=== PATIENT | female | born 1955 | race African-American/Black ===

== ENCOUNTER 2018-04-01 15:01 | Emergency (ER) | payer BC, MEDICAID ==
--- OUTSIDE RECORDS SUMMARY | 2018-04-01 15:04 | XMS REPORT | Clinical Summary ---
:1955 Author Organization [facility] Address [address] [place] [address] Phone Care Team Providers Name Role Phone Unavailable Primary Care Provider Unavailable Allergies No Known Allergies Current Medications No known medications Active Problems Not on file Social History Tobacco Use Types Packs/Day Years Used Date Current Some Day Smoker Cigars Alcohol Use Drinks/Week oz/Week Comments Yes Sex Assigned at Date Recorded Not on file Last Filed Vital Signs Not on file Plan of Treatment Not on file Results Not on fileafter 03/31/2017
--- NOTE | 2018-04-01 16:18 | RAD REPORT ---
EXAM DESCRIPTION: RAD - Foot Right 3 View - 04/01/2018 4:11 pm CLINICAL HISTORY: Right foot pain FINDINGS: No fracture or dislocation is seen The bones are osteoporotic. Soft tissue swelling is present along the dorsal aspect of the midfoot. No underlying bony destructiv e lesion is seen
[2018-04-01] MEDS ORDERED: LIDOCAINE 1% 20 ML MDV ONE (16:26)
[2018-04-01] MEDS ORDERED: HYDROCODONE/APAP 5/325 MG TAB ONE (16:52)
--- NOTE | 2018-04-01 16:54 | ER ---
Nurse's Notes [facility] Name: Genevieve Pompa Age: 62 yrs Sex: Female : 1955 Arrival Date: 04/01/2018 Time: 15:07 Bed 12 Private MD: Diagnosis: Sebaceous cyst;Cellulitis of right lower limb Presentation: 04/01 15:14 Presenting complaint: Patient states: my R foot is hurting, i noticed a boil in there hj for weeks; its hot and painful; 10/10 pain; reports chills;. Transition of care: patient was not received from another setting of care. Onset of symptoms was April 01, 2018. Initial Sepsis Screen: Does the patient meet any 2 criteria? No. Patient's initial sepsis screen is negative. Does the patient have a suspected source of infection? No. Patient's initial sepsis screen is negative. Care prior to arrival: None. 15:14 Method Of Arrival: Ambulatory 15:14 Acuity: DA 4 hj Triage Assessment: 15:16 General: Appears in no apparent distress. uncomfortable, Behavior is calm, cooperative, hj appropriate for age. Pain: Complains of pain in dorsum of right foot Pain currently is 10 out of 10 on a pain scale. Historical: - Allergies: 15:16 No Known Allergies; hj - Home Meds: 15:16 None [Active]; hj - PMHx: 15:16 Hypertension; hj - PSHx: 15:16 None; hj - Immunization history:: Adult Immunizations up to date. - Social history:: The patient lives with family, Smoking status: Patient/guardian denies using tobacco. Screenin:54 Abuse screen: Denies threats or abuse. Nutritional screening: No deficits noted. la1 Tuberculosis screening: No symptoms or risk factors identified. Fall Risk None identified. Assessment: 15:53 General: Appears in no apparent distress. Behavior is calm, cooperative. Pain: la1 Complains of pain in dorsum of right foot. Neuro: Level of Consciousness is awake, alert, obeys commands, Oriented to person, place, time, situation. Cardiovascular: Capillary refill < 3 seconds Patient's skin is warm and dry. Musculoskeletal: Circulation, motion, and sensation intact. Capillary refill < 3 seconds, Range of motion: intact in all extremities, Elevated area of skin noted to dorsum of right foot without redness swelling or drainage. 16:21 Reassessment: Patient appears in no apparent distress at this time. No changes from la1 previously documented assessment. Patient and/or family updated on plan of care and expected duration. Pain level reassessed. Vital Signs: 15:16 BP 125 / 85; Pulse 94; Resp 18; Temp 98.8(TE); Pulse Ox 99% on R/A; Weight 67.13 kg; hj Height 5 ft. 5 in. (165.10 cm); Pain 10/10; 15:16 Body Mass Index 24.63 (67.13 kg, 165.10 cm) ED Course: 15:07 Patient arrived in ED. rg4 15:15 Triage completed. hj 15:16 Arm band placed on right wrist. hj 15:53 Clemente Santana RN is Primary Nurse. la1 15:54 Call light in reach. la1 15:56 Doug Gomez MD is Attending Physician. gs 16:11 Foot Right 3 View In Process Unspecified. EDMS 17:14 No provider procedures requiring assistance completed. Patient did not have IV access la1 during this emergency room visit. Administered Medications: 16:26 Drug: Lidocaine (1 %) 5 mg Route: Infiltration; la1 16:53 Drug: [place] 5 mg-325 mg 1 tabs Route: PO; iw Outcome: 16:54 Discharge ordered by . gs 17:14 Discharged to home ambulatory. la1 17:14 Condition: stable 17:14 Discharge instructions given to patient, family, Instructed on discharge instructions, follow up and referral plans. Demonstrated understanding of instructions, follow-up care, medications, Prescriptions given X 2. 17:15 Patient left the ED. la1 Signatures: Dispatcher [employer] EDMS Zeina Calixto RN RN Clemente Santana RN RN laGeorge Wynne RN RN hj Garcia, Rubi rg4 Doug Gomez MD MD Corrections: (The following items were deleted from the chart) 15:18 15:16 Pulse 94bpm; Resp 18bpm; Pulse Ox 99% RA; Temp 98.8F Temporal; 67.13 kg; Height 5 hj ft. 5 in.; BMI: 24.6; Pain 10/10; hj
--- NOTE | 2018-04-01 16:55 | EDPHYS ---
Physician Documentation [facility] Name: Genevieve Pompa Age: 62 yrs Sex: Female : 1955 Arrival Date: 04/01/2018 Time: 15:07 Bed 12 Private MD: ED Physician Doug Gomez HPI: 04/01 16:50 This 62 yrs old Black Female presents to ER via Ambulatory with complaints of Foot Pain.gs 16:50 The patient presents with an abscess of the dorsum of right foot, The patient presents gs with cellulitis of the right foot. Description: The affected area is small, confluent, erythematous, fluctuant. Onset: The symptoms/episode began/occurred 5 day(s) ago, and became worse and became persistent. Associated signs and symptoms: Pertinent negatives: fever. Modifying factors: the symptoms are alleviated by nothing, the symptoms are aggravated by walking. Severity of symptoms: At their worst the symptoms were moderate, in the emergency department the symptoms are unchanged. The patient has experienced a previous episode. The patient has not recently seen a physician. Historical: - Allergies: 15:16 No Known Allergies; - Home Meds: 15:16 None [Active]; hj - PMHx: 15:16 Hypertension; - PSHx: 15:16 None; hj - Immunization history:: Adult Immunizations up to date. - Social history:: The patient lives with family, Smoking status: Patient/guardian denies using tobacco. ROS: 16:50 All other systems are negative. gs Exam: 16:50 Constitutional: The patient appears alert, awake. gs 16:50 Musculoskeletal/extremity: Extremities: noted in the right foot: erythema, swelling, tenderness, Circulation is intact in all extremities. Sensation intact. 16:50 Skin: abscess, that is small, of the dorsum of right foot, with fluctuance, that is mild, cellulitis, that is mild, on the dorsum of right foot. Vital Signs: 15:16 BP 125 / 85; Pulse 94; Resp 18; Temp 98.8(TE); Pulse Ox 99% on R/A; Weight 67.13 kg; hj Height 5 ft. 5 in. (165.10 cm); Pain 10/10; 15:16 Body Mass Index 24.63 (67.13 kg, 165.10 cm) Procedures: 16:50 I \T\ D: Incision and drainage was performed for an abscess of the right Prepped with Betadine, Anesthetized with 5 ml's 1% Lidocaine. Incised with #15 blade. Drained small amount looks like sebaceous cyst Dressing: sterile 4x4 gauze, the patient tolerated the procedure well. MDM: 16:25 Patient medically screened. gs 16:50 Differential diagnosis: abscess, cellulitis. Differential diagnosis: sebaceous cyst. Data reviewed: vital signs. Response to treatment: the patient's symptoms have markedly improved after treatment, and as a result, I will discharge patient. 04/01 15:55 Order name: Foot Right 3 View; Complete Time: 16:49 EDMS Administered Medications: 16:26 Drug: Lidocaine (1 %) 5 mg Route: Infiltration; la1 16:53 Drug: [place] 5 mg-325 mg 1 tabs Route: PO; Disposition: 04/01/18 16:54 Discharged to Home. Impression: Sebaceous cyst, Cellulitis of right lower limb. - Condition is Stable. - Discharge Instructions: Cellulitis, Epidermal Cyst, Bolh-[place]-Uudg. - Prescriptions for Tylenol- Codeine #4 300-60 mg Oral Tablet - take 1 tablet by ORAL route every 6 hours As needed; 10 tablet. Keflex 500 mg Oral Capsule - take 1 capsule by ORAL route every 6 hours for 10 days; 40 capsule. - Family Work Release, Medication Reconciliation Form, Thank You Letter, Antibiotic Education, Prescription Opioid Use form. - Follow up: Private Physician; When: 2 - 3 days; Reason: Re-evaluation by your physician. Signatures: Dispatcher [employer] [facility] Zeina Calixto RN RN Clemente Santana RN RN [facility] George Ramirez RN RN Doug Gomez MD MD Corrections: (The following items were deleted from the chart) 15:55 15:19 Foot Left 3 View+RAD.RAD.BRZ ordered. [facility] 17:15 16:54 04/01/2018 16:54 Discharged to Home. Impression: Sebaceous cyst; Cellulitis of la1 right lower limb. Condition is Stable. Forms are Medication Reconciliation Form, Thank You Letter, Antibiotic Education, Prescription Opioid Use. Follow up: Private Physician; When: 2 - 3 days; Reason: Re-evaluation by your physician.
[2018-04-01 17:35] VITALS: BP 125/85; TEMP 98.8; O2SAT 99
== END 2018-04-01 17:15 | disposition home or self-care (01) ==
LOC: ER 15:01
PROC: 0J9Q0ZZ Drainage of Right Foot Subcutaneous Tissue and Fascia, Open Approach (ICD-10-PCS; principal; 2018-04-01)
DX: L03.115 Cellulitis of right lower limb (principal); L72.3 Sebaceous cyst; I10 Essential (primary) hypertension
CPT/HCPCS: 99283

== ENCOUNTER 2018-04-26 13:26 | Emergency (ER) | payer MEDICAID ==
--- OUTSIDE RECORDS SUMMARY | 2018-04-26 13:28 | XMS REPORT | Clinical Summary ---
:1955 Author Organization [facility] Address [address] [place] [address] Phone Care Team Providers Name Role Phone [...] Not on file Results Not on fileafter 04/25/2017
--- NOTE | 2018-04-26 15:49 | ER ---
Nurse's Notes [facility] Name: Genevieve Pompa Age: 62 yrs Sex: Female : 1955 Arrival Date: 04/26/2018 Time: 13:35 Bed 26 Private MD: None, None Diagnosis: Sebaceous cyst Presentation: 04/26 14:27 Presenting complaint: Patient states: Pain at night to top of right foot after I \T\ D in aj this ER 5 weeks ago. Patient reports itching as well. Transition of care: patient was not received from another setting of care. Onset of symptoms was April 04, 2018. Risk Assessment: Do you want to hurt yourself or someone else? Patient reports no desire to harm self or others. Care prior to arrival: None. 14:27 Method Of Arrival: Ambulatory 14:27 Acuity: DA 4 16:09 Initial Sepsis Screen: Does the patient meet any 2 criteria? No. Patient's initial tl3 sepsis screen is negative. Does the patient have a suspected source of infection? No. Patient's initial sepsis screen is negative. Triage Assessment: 14:29 General: Appears in no apparent distress. comfortable, Behavior is calm, cooperative, aj appropriate for age. Pain: Complains of pain in dorsum of right foot. Neuro: Level of Consciousness is awake, alert, obeys commands, Oriented to person, place, time, situation, Appropriate for age. Respiratory: Airway is patent Respiratory effort is even, unlabored, Respiratory pattern is regular, symmetrical. Derm: Skin is intact, is healthy with good turgor, Skin is pink, warm \T\ dry. normal. Historical: - Allergies: 14:29 Tylenol-Codeine #3; aj - Home Meds: 14:29 None [Active]; aj - PMHx: 14:29 Hypertension; aj - PSHx: 14:29 None; aj - Immunization history:: Adult Immunizations up to date. - Social history:: Smoking status: Patient uses tobacco products, cigars. - Ebola Screening: : Patient negative for fever greater than or equal to 101.5 degrees Fahrenheit, and additional compatible Ebola Virus Disease symptoms Patient denies exposure to infectious person Patient denies travel to an Ebola-affected area in the 21 days before illness onset No symptoms or risks identified at this time. Screenin:38 Abuse screen: Denies threats or abuse. Nutritional screening: No deficits noted. tl3 Tuberculosis screening: No symptoms or risk factors identified. Fall Risk None identified. Assessment: 15:38 General: Appears in no apparent distress. comfortable, well groomed, well developed, tl3 well nourished, Behavior is calm, cooperative, appropriate for age. Pain: Complains of pain in right foot and dorsum of right foot. Neuro: No deficits noted. Level of Consciousness is awake, alert, obeys commands, Oriented to person, place, time, situation, Appropriate for age. Cardiovascular: No deficits noted. Patient's skin is warm and dry. Respiratory: No deficits noted. Airway is patent Respiratory effort is even, unlabored, Respiratory pattern is regular, symmetrical. GI: No deficits noted. No signs and/or symptoms were reported involving the gastrointestinal system. : No deficits noted. No signs and/or symptoms were reported regarding the genitourinary system. EENT: No deficits noted. No signs and/or symptoms were reported regarding the EENT system. Derm: No deficits noted. No signs and/or symptoms reported regarding the dermatologic system. Musculoskeletal: Swelling present in right foot and dorsum of right foot treated for abscess 5 weeks ago, pt complains of tenderness and swelling, no drainage or heat at present time. Vital Signs: 14:29 BP 136 / 77; Pulse 88; Resp 16; Temp 97.8; Pulse Ox 97% on R/A; Weight 66.22 kg; Height aj 5 ft. 5 in. (165.10 cm); 14:29 Body Mass Index 24.30 (66.22 kg, 165.10 cm) ED Course: 13:35 Patient arrived in ED. sb2 13:35 None, None is Private Physician. sb2 14:28 Triage completed. aj 14:29 Arm band placed on left wrist. Patient placed in an exam room. aj 15:33 Su Corona, GUS is Primary Nurse. tl3 15:36 Doug Gomez MD is Attending Physician. gs 15:38 Patient has correct armband on for positive identification. Bed in low position. Call tl3 light in reach. Side rails up X 1. Pulse ox on. NIBP on. 15:38 No provider procedures requiring assistance completed. tl3 15:48 Casey Chin DPM is Referral Physician. gs 15:48 Bill Martin DPM is Referral Physician. gs 15:48 Keegan Bee DPM is Referral Physician. gs 15:48 Carlos Mccain DPM is Referral Physician. gs 16:09 Patient did not have IV access during this emergency room visit. tl3 Administered Medications: No medications were administered Outcome: 15:48 Discharge ordered by MD. 16:08 Discharged to home ambulatory. tl3 16:08 Condition: stable 16:08 Discharge instructions given to patient, Instructed on discharge instructions, follow up and referral plans. Demonstrated understanding of instructions, follow-up care. 16:09 Patient left the ED. tl3 Signatures: Vivian Shin, RN RN Doug Jo MD MD Sheila Torres 2 Su Corona, RN RN tl3
--- NOTE | 2018-04-26 16:10 | EDPHYS ---
Physician Documentation [facility] Name: Genevieve Pompa Age: 62 yrs Sex: Female : 1955 Arrival Date: 04/26/2018 Time: 13:35 Bed 26 Private MD: None, None ED Physician Doug Gomez HPI: 04/26 15:53 This 62 yrs old Black Female presents to ER via Ambulatory with complaints of Foot gs Pain, Leg Pain. 15:53 The patient presents with sebaceous cyst on foot. The complaints affect the right foot, gs dorsum of right foot. Onset: The symptoms/episode began/occurred 3 month(s) ago. Modifying factors: the symptoms are aggravated by wearing shoes. Associated signs and symptoms: Pertinent negatives: fever. Severity of symptoms: At their worst the symptoms were moderate, in the emergency department the symptoms are unchanged. The patient has experienced similar episodes in the past, a few times. The patient has been recently seen at the [facility] Emergency Department, last month, had drained by me, did not follow up. Historical: - Allergies: 14:29 Tylenol-Codeine #3; aj - Home Meds: 14:29 None [Active]; aj - PMHx: 14:29 Hypertension; aj - PSHx: 14:29 None; aj - Immunization history:: Adult Immunizations up to date. - Social history:: Smoking status: Patient uses tobacco products, cigars. - Ebola Screening: : Patient negative for fever greater than or equal to 101.5 degrees Fahrenheit, and additional compatible Ebola Virus Disease symptoms Patient denies exposure to infectious person Patient denies travel to an Ebola-affected area in the 21 days before illness onset No symptoms or risks identified at this time. ROS: 15:53 All other systems are negative. gs Exam: 15:53 ENT: Nares patent. No nasal discharge, no septal abnormalities noted. Tympanic gs membranes are normal and external auditory canals are clear. Oropharynx with no redness, swelling, or masses, exudates, or evidence of obstruction, uvula midline. Mucous membranes moist. Cardiovascular: Regular rate and rhythm with a normal S1 and S2. No gallops, murmurs, or rubs. Normal PMI, no JVD. No pulse deficits. Respiratory: Lungs have equal breath sounds bilaterally, clear to auscultation and percussion. No rales, rhonchi or wheezes noted. No increased work of breathing, no retractions or nasal flaring. Abdomen/GI: Soft, non-tender, with normal bowel sounds. No distension or tympany. No guarding or rebound. No evidence of tenderness throughout. Back: No spinal tenderness. No costovertebral tenderness. Full range of motion. Skin: Warm, dry with normal turgor. Normal color with no rashes, no lesions, and no evidence of cellulitis. Neuro: Awake and alert, GCS 15, oriented to person, place, time, and situation. Cranial nerves II-XII grossly intact. Motor strength 5/5 in all extremities. Sensory grossly intact. Cerebellar exam normal. Normal gait. 15:53 Constitutional: The patient appears in no acute distress, alert, awake. 15:53 Musculoskeletal/extremity: ROM: no acute changes, Circulation is intact in all extremities. Sensation intact. 15:53 Skin: abscess, that is small, approximately 33 cm(s), of the dorsum of right foot, is a sebaceous cyst. Vital Signs: 14:29 BP 136 / 77; Pulse 88; Resp 16; Temp 97.8; Pulse Ox 97% on R/A; Weight 66.22 kg; Height aj 5 ft. 5 in. (165.10 cm); 14:29 Body Mass Index 24.30 (66.22 kg, 165.10 cm) aj MDM: 15:46 Patient medically screened. 15:53 Data reviewed: vital signs, nurses notes. Response to treatment: There is no gs appreciated change of the patient's symptoms at this time, and as a result, I will discharge patient. Administered Medications: No medications were administered Disposition: 04/26/18 15:48 Discharged to Home. Impression: Sebaceous cyst. - Condition is Stable. - Discharge Instructions: Epidermal Cyst. - Medication Reconciliation Form, Thank You Letter, Antibiotic Education, Prescription Opioid Use, Family Work Release form. - Follow up: Casey Chin DPM; When: 2 - 3 days. Follow up: Bill Martin DPM; When: 2 - 3 days; Reason: Re-evaluation by your physician. Follow up: Keegan Bee DPM; When: 2 - 3 days; Reason: Re-evaluation by your physician. Follow up: Carlos Mccain DPM; Reason: Re-evaluation by your physician. Signatures: Vivian Shin RN RN Doug Gomez MD MD Su Corona RN RN tl3 Corrections: (The following items were deleted from the chart) 16:09 15:48 04/26/2018 15:48 Discharged to Home. Impression: Sebaceous cyst. Condition is tl3 Stable. Forms are Medication Reconciliation Form, Thank You Letter, Antibiotic Education, Prescription Opioid Use. Follow up: Casey Chin; When: 2 - 3 days. Follow up: Bill Martin; When: 2 - 3 days; Reason: Re-evaluation by your physician. Follow up: Keegan Bee; When: 2 - 3 days; Reason: Re-evaluation by your physician. Follow up: Carlos Mccain; Reason: Re-evaluation by your physician. gs
[2018-04-26 16:13] VITALS: BP 136/77; TEMP 97.8; O2SAT 97
== END 2018-04-26 16:09 | disposition home or self-care (01) ==
LOC: ER 13:26
DX: L72.3 Sebaceous cyst (principal); I10 Essential (primary) hypertension; Z72.0 Tobacco use; Z88.5 Allergy status to narcotic agent
CPT/HCPCS: 99283

== ENCOUNTER 2018-10-27 18:07 | Emergency (ER) | payer MEDICAID ==
--- OUTSIDE RECORDS SUMMARY | 2018-10-27 18:10 | XMS REPORT | Clinical Summary ---
:1955 Author Organization [facility] Address [address] [place] [id number] Care Team Providers Name Role Phone Kacey Primary Care Provider Allergies No Known Allergies Medications No known medications Active Problems Not on file Social History Tobacco Use Types Packs/Day Years Used Date Current Some Day Smoker Cigars Alcohol Use Drinks/Week oz/Week Comments Yes Sex Assigned at Date Recorded Not on file Job Start Date Occupation Industry Not on file Not on file Not on file Travel History Travel Start Travel End No recent travel history available. Last Filed Vital Signs Not on file Plan of Treatment Not on file Results Not on fileafter 10/26/2017
--- NOTE | 2018-10-27 21:17 | RAD REPORT ---
EXAM DESCRIPTION: US - Extrem Venous W Compress Rasheed - 10/27/2018 9:12 pm CLINICAL HISTORY: Bilateral leg pain and swelling COMPARISON: None. TECHNIQUE: Real-time sonographic evaluation of the bilateral lower extremity common femoral, superfi cial femoral, popliteal and posterior tibial veins was performed. FINDINGS: Normal compressibility, flow augmentation, phasic flow and spontaneous flow are identified in the left and right lower extremity common femoral, superficial femoral, popliteal and posterior t ibial veins. No intraluminal filling defects seen. IMPRESSION: No DVT in either lower extremity.
[2018-10-27 22:08] LABS: Absolute Lymphocytes (CBC) 2.7 K/uL (0.7-4.9); Absolute Monocytes 0.8 K/uL (0.1-1.3); Absolute Neutrophil 9.4 K/uL (1.8-8.0); Basophils % 0.7 % (0-1.3); Eosinophils % 1.2 % (0-4.4); Hematocrit 34.5 % (36.0-45.0); Lymphocytes % 20.8 % (15.3-44.8); MCH 27.7 pg (27.0-35.0); MCV 86.9 fL (80-100); MPV 9.7 fL (7.6-11.3); Monocytes % 6.1 % (3.3-12.3); RBC Red Blood Cell Count 3.97 M/uL (3.86-4.86)
[2018-10-27] MEDS ORDERED: HYDROCODONE/APAP 10/325 TAB ONE (22:09)
[2018-10-27 22:10] LABS: Albumin 3.6 g/dL (3.4-5.0); Bilirubin Total 0.3 mg/dL (0.2-1.0); Potassium 4.7 mmol/L (3.5-5.1); Protein, Total 7.5 g/dL (6.4-8.2)
[2018-10-27 22:45] LABS: Platelet Estimate ADEQ; Urine White Blood Cell Casts OK
[2018-10-27 22:46] LABS: Blood Morphology Comment NOT SEEN (NOT SEEN)
[2018-10-27] MEDS ORDERED: ONDANSETRON 4 MG/2 ML VIAL ONE (23:46)
[2018-10-27] MEDS ORDERED: FENTANYL CITR 100 MCG/2 ML ONE (23:46)
[2018-10-27] MEDS ORDERED: CLINDAMYCIN 900MG/D5W 900 MG/50 ML IVPB IV ONE (23:46)
--- NOTE | 2018-10-28 00:16 | EDPHYS ---
Physician Documentation [facility] Name: Genevieve Pompa Age: 62 yrs Sex: Female : 1955 Arrival Date: 10/27/2018 Time: 18:12 Bed 15 Private MD: ED Physician German Worthington HPI: 10/27 20:09 This 62 yrs old Black Female presents to ER via Wheelchair with complaints of Feet jmm Swelling. 20:09 The patient presents with pain, that is acute, swelling. The complaints affect the jmm posterior aspect of right knee, right calf, medial aspect of right knee, medial aspect of right calf, right knee, right estrdaa and dorsum of right foot. Onset: The symptoms/episode began/occurred gradually, 2 day(s) ago. Associated signs and symptoms: Pertinent positives: calf tenderness, fever, warmth. This is a 62 year old female with a history of htn that presents to the ED with right lower leg pain and swelling beginning approx 2 days ago. Patient admits to chills and subjective fever. . Historical: - Allergies: 18:37 Tylenol-Codeine #3; la1 - PMHx: 18:37 Hypertension; la1 - Immunization history:: Adult Immunizations up to date. - Social history:: Smoking status: Patient/guardian denies using tobacco. - Ebola Screening: : No symptoms or risks identified at this time. ROS: 20:09 Eyes: Negative for injury, pain, redness, and discharge. jmm 20:09 Constitutional: Positive for chills, fever. 20:09 MS/extremity: Positive for erythema, pain, swelling, tenderness. 20:09 All other systems are negative. Exam: 20:09 Constitutional: This is a well developed, well nourished patient who is awake, alert, jmm and in no acute distress. Head/Face: atraumatic. Eyes: EOMI, no conjunctival erythema appreciated ENT: Moist Mucus Membranes Neck: Trachea midline, Supple Chest/axilla: Normal chest wall appearance and motion. Cardiovascular: Regular rate and rhythm. No edema appreciated Respiratory: Normal respirations, no respiratory distress appreciated 20:09 Musculoskeletal/extremity: full dorsalis pedis pulse noted to the right foot, compartments are soft, NVI. 20:09 Skin: warmth and tenderness noted to the right lower leg. 20:09 Neuro: Orientation: is normal, Mentation: is normal, Memory: is normal, Motor: is normal. 20:09 Psych: Behavior/mood is pleasant, cooperative. Vital Signs: 18:37 BP 135 / 81; Pulse 71; Resp 15; Temp 98.7; Pulse Ox 98% on R/A; Weight 72.57 kg; Height la1 5 ft. 5 in. (165.10 cm); 20:05 BP 150 / 91; Pulse 77; Resp 18; Temp 99.0(O); Pulse Ox 99% on R/A; Pain 8/10; jb4 21:00 BP 127 / 76; Pulse 84; Resp 16; Pulse Ox 100% on R/A; jb4 22:00 BP 133 / 83; Pulse 81; Resp 16; Pulse Ox 100% on R/A; jb4 23:00 BP 127 / 87; Pulse 88; Resp 18; Pulse Ox 95% on R/A; jb4 10/28 00:00 BP 130 / 77; Pulse 88; Resp 16; Pulse Ox 97% ; jb4 00:30 BP 123 / 76; Pulse 88; Resp 16; Pulse Ox 98% on R/A; jb4 10/27 18:37 Body Mass Index 26.63 (72.57 kg, 165.10 cm) la1 MDM: 10/27 20:[address] [facility] 10/28 00:13 Data reviewed: vital signs, nurses notes. Counseling: I had a detailed discussion with mendoza the patient and/or guardian regarding: the historical points, exam findings, and any diagnostic results supporting the discharge/admit diagnosis, lab results, radiology results, the need for outpatient follow up, to return to the emergency department if symptoms worsen or persist or if there are any questions or concerns that arise at home. Response to treatment: the patient's symptoms have mildly improved after treatment. ED course: Patient is alert and non toxic in appearance in the ED. Patient will be treated with oral antibiotics outpatient. Patient given strict return precautions. Patient understood and agrees with the plan of care. . 10/27 20:10 Order name: CBC with Diff [facility] 10/27 20:10 Order name: CMP [facility] 10/27 20:10 Order name: Procalcitonin [facility] 10/27 20:10 Order name: Blood Culture Adult (2) [facility] 10/27 20:10 Order name: Lactate [facility] 10/27 21:18 Order name: Procalcitonin; Complete Time: 21:57 EDMS 10/27 19:18 Order name: Extrem Venous W Compression Rasheed US rn 10/27 21:18 Order name: US; Complete Time: 21:57 EDMS 10/27 22:10 Order name: Comprehensive Metabolic Panel; Complete Time: 22:11 EDMS 10/27 22:27 Order name: Lactate; Complete Time: 22:37 EDMS 10/27 22:46 Order name: CBC with Automated Diff; Complete Time: 23:00 EDMS 10/27 22:46 Order name: CBC Smear Scan; Complete Time: 23:00 EDMS 10/27 20:10 Order name: Saline Lock; Complete Time: 22:06 [facility] Administered Medications: 10/27 22:06 Drug: [place] 10 mg-325 mg 1 tabs Route: PO; [facility] 23:22 Follow up: Response: No adverse reaction; Pain is decreased [facility] 23:48 Drug: Zofran 4 mg Route: IVP; Site: left antecubital; [facility] 10/28 01:00 Follow up: Response: No adverse reaction; Nausea is decreased [facility] 10/27 23:49 Drug: fentaNYL (PF) 50 mcg Route: IVP; Site: left antecubital; 4 10/28 01:00 Follow up: Response: No adverse reaction; Pain is decreased [facility] 10/27 23:50 Drug: Clindamycin 900 mg Route: IVPB; Infused Over: 30 mins; Site: left antecubital; [facility] 10/28 00:20 Follow up: Response: No adverse reaction; IV Status: Completed infusion [facility] Disposition: 05:01 Co-signature as Attending Physician, German Worthington MD. rn Disposition: 10/28/18 00:15 Discharged to Home. Impression: Cellulitis of the right lower leg. - Condition is Stable. - Discharge Instructions: Cellulitis, Adult. - Prescriptions for Clindamycin HCl 300 mg Oral Capsule - take 1 capsule by ORAL route every 6 hours for 10 days; 40 capsule. Ultram 50 mg Oral Tablet - take 1 tablet by ORAL route every 6 hours As needed; 20 tablet. Bactrim DS 800- 160 mg Oral Tablet - take 1 tablet by ORAL route every 12 hours for 10 days; 20 tablet. - Medication Reconciliation Form, Thank You Letter, Antibiotic Education, Prescription Opioid Use form. - Follow up: Private Physician; When: 2 - 3 days; Reason: Recheck today's complaints, Continuance of care, Re-evaluation by your physician. Signatures: Dispatcher [employer] EDAdam Chowdary PA PA jmm Nieto, Roman, MD MD rn Attema, Lee, RN RN la1 Rasta May RN RN jb4 Corrections: (The following items were deleted from the chart) 01:30 00:15 10/28/2018 00:15 Discharged to Home. Impression: Cellulitis of the right lower jb4 leg. Condition is Stable. Forms are Medication Reconciliation Form, Thank You Letter, Antibiotic Education, Prescription Opioid Use. Follow up: Private Physician; When: 2 - 3 days; Reason: Recheck today's complaints, Continuance of care, Re-evaluation by your physician. carlene
--- NOTE | 2018-10-28 00:16 | ER ---
Nurse's Notes [facility] Name: Genevieve Pompa Age: 62 yrs Sex: Female : 1955 Arrival Date: 10/27/2018 Time: 18:12 Bed 15 Private MD: Diagnosis: Cellulitis of the right lower leg Presentation: 10/27 18:36 Presenting complaint: Patient states: About three weeks ago my leg was swollen and now la1 my right lower leg is swollen and hurting. Transition of care: patient was not received from another setting of care. Onset of symptoms was October 27, 2018. Risk Assessment: Do you want to hurt yourself or someone else? Patient reports no desire to harm self or others. Initial Sepsis Screen: Does the patient meet any 2 criteria? No. Patient's initial sepsis screen is negative. Does the patient have a suspected source of infection? No. Patient's initial sepsis screen is negative. Care prior to arrival: None. 18:36 Method Of Arrival: Wheelchair la1 18:36 Acuity: DA 3 la1 Historical: - Allergies: 18:37 Tylenol-Codeine #3; la1 - PMHx: 18:37 Hypertension; la1 - Immunization history:: Adult Immunizations up to date. - Social history:: Smoking status: Patient/guardian denies using tobacco. - Ebola Screening: : No symptoms or risks identified at this time. Screenin:05 Abuse screen: Denies threats or abuse. Nutritional screening: No deficits noted. jb4 Tuberculosis screening: No symptoms or risk factors identified. Fall Risk Gait- Impaired (20 pts.). Total Fletcher Fall Scale indicates No Risk (0-24 pts). Assessment: 20:05 General: Appears in no apparent distress. uncomfortable, Behavior is calm, cooperative, jb4 appropriate for age. Pain: Complains of pain in right foot and right leg Pain does not radiate. Pain currently is 5 out of 10 on a pain scale. Neuro: Level of Consciousness is awake, alert, obeys commands, Oriented to person, place, time. Cardiovascular: Patient's skin is warm and dry. Respiratory: Airway is patent Respiratory effort is even, unlabored, Respiratory pattern is regular, symmetrical. GI: No signs and/or symptoms were reported involving the gastrointestinal system. : EENT: No signs and/or symptoms were reported regarding the EENT system. Derm: Skin is intact, Skin is dry, Skin is normal, Skin temperature is warm. Musculoskeletal: Capillary refill < 3 seconds, in bilateral toes. Range of motion: limited in right ankle. 21:00 Reassessment: Patient appears in no apparent distress at this time. Patient and/or jb4 family updated on plan of care and expected duration. Pain level reassessed. Patient is alert, oriented x 3, equal unlabored respirations, skin warm/dry/pink. 21:00 Reassessment: Patient appears in no apparent distress at this time. Patient and/or jb4 family updated on plan of care and expected duration. Pain level reassessed. Patient is alert, oriented x 3, equal unlabored respirations, skin warm/dry/pink. 22:00 Reassessment: Patient appears in no apparent distress at this time. Patient and/or jb4 family updated on plan of care and expected duration. Pain level reassessed. Patient is alert, oriented x 3, equal unlabored respirations, skin warm/dry/pink. 23:00 Reassessment: Patient appears in no apparent distress at this time. Patient and/or jb4 family updated on plan of care and expected duration. Pain level reassessed. Patient is alert, oriented x 3, equal unlabored respirations, skin warm/dry/pink. Patient states feeling better. 10/28 00:00 Reassessment: Patient appears in no apparent distress at this time. Patient and/or jb4 family updated on plan of care and expected duration. Pain level reassessed. Patient is alert, oriented x 3, equal unlabored respirations, skin warm/dry/pink. 00:30 Reassessment: Pt is waiting for her ride prior to discharge. jb4 01:00 Reassessment: Patient appears in no apparent distress at this time. Patient and/or jb4 family updated on plan of care and expected duration. Pain level reassessed. Patient is alert, oriented x 3, equal unlabored respirations, skin warm/dry/pink. Vital Signs: 10/27 18:37 BP 135 / 81; Pulse 71; Resp 15; Temp 98.7; Pulse Ox 98% on R/A; Weight 72.57 kg; Height la1 5 ft. 5 in. (165.10 cm); 20:05 BP 150 / 91; Pulse 77; Resp 18; Temp 99.0(O); Pulse Ox 99% on R/A; Pain 8/10; jb4 21:00 BP 127 / 76; Pulse 84; Resp 16; Pulse Ox 100% on R/A; jb4 22:00 BP 133 / 83; Pulse 81; Resp 16; Pulse Ox 100% on R/A; jb4 23:00 BP 127 / 87; Pulse 88; Resp 18; Pulse Ox 95% on R/A; jb4 12 00:00 BP 130 / 77; Pulse 88; Resp 16; Pulse Ox 97% ; jb4 00:30 BP 123 / 76; Pulse 88; Resp 16; Pulse Ox 98% on R/A; jb4 10/27 18:37 Body Mass Index 26.63 (72.57 kg, 165.10 cm) la1 ED Course: 10/27 18:12 Patient arrived in ED. sb2 18:37 Triage completed. la1 18:38 Arm band placed on right wrist. la1 19:40 Adam Cunningham PA is PHCP. [facility] 19:40 German Worthington MD is Attending Physician. [facility] 19:59 Rasta May, GUS is Primary Nurse. jb4 20:05 Patient has correct armband on for positive identification. Bed in low position. Call jb4 light in reach. Side rails up X 1. Pulse ox on. NIBP on. 21:09 Radiology exam delayed due to IV insertion attempt and/or patient not having sg3 appropriate IV at this time. 21:09 Ultrasound completed. Patient tolerated well. Notified WAREHOUSE SELECTOR/JENNIFER nj. sg3 21:55 Inserted saline lock: 22 gauge in left antecubital area, using aseptic technique. Blood la1 collected. 22:06 CMP Sent. jb4 22:06 CBC with Diff Sent. jb4 22:07 Blood Culture Adult (2) Sent. jb4 22:07 Lactate Sent. jb4 22:07 Procalcitonin Sent. jb4 10/28 01:00 No provider procedures requiring assistance completed. jb4 01:15 IV discontinued, intact, bleeding controlled. jb4 Administered Medications: 10/27 22:06 Drug: [place] 10 mg-325 mg 1 tabs Route: PO; jb4 23:22 Follow up: Response: No adverse reaction; Pain is decreased jb4 23:48 Drug: Zofran 4 mg Route: IVP; Site: left antecubital; jb4 10/28 01:00 Follow up: Response: No adverse reaction; Nausea is decreased jb4 10/27 23:49 Drug: fentaNYL (PF) 50 mcg Route: IVP; Site: left antecubital; jb4 10/28 01:00 Follow up: Response: No adverse reaction; Pain is decreased jb4 10/27 23:50 Drug: Clindamycin 900 mg Route: IVPB; Infused Over: 30 mins; Site: left antecubital; jb4 10/28 00:20 Follow up: Response: No adverse reaction; IV Status: Completed infusion jb4 Outcome: 00:15 Discharge ordered by . carlene 01:15 Discharged to home ambulatory. [facility] 01:15 Condition: stable 01:15 Discharge instructions given to patient, Instructed on discharge instructions, follow up and referral plans. medication usage, Demonstrated understanding of instructions, follow-up care, medications, Prescriptions given X 3. 01:30 Patient left the ED. jb4 Signatures: Adam Cunningham PA PA jmm Attema, Lee RN RN la1 Rasta May RN RN jb4 Luh Alexandra3 Sheila Torres2
[2018-10-28 02:03] VITALS: TEMP 99
[2018-10-28 02:10] VITALS: BP 123/76; O2SAT 98
== END 2018-10-28 01:30 | disposition home or self-care (01) ==
LOC: ER 18:07
DX: L03.115 Cellulitis of right lower limb (principal); I10 Essential (primary) hypertension; Z88.5 Allergy status to narcotic agent
CPT/HCPCS: 36415; 80053; 83605; 84145; 85025; 87040; 93970; 96365; 96375; 99284; J2405; J3010

== ENCOUNTER 2019-05-20 17:54 | Emergency (ER) | payer MEDICAID ==
--- OUTSIDE RECORDS SUMMARY | 2019-05-20 17:56 | XMS REPORT | Clinical Summary ---
:1955 Author Organization [facility] Address [address] [place] [id number] Care Team Providers Name Role Phone Kacey [...] Not on file Results Not on fileafter 05/19/2018
--- NOTE | 2019-05-20 18:48 | RAD REPORT ---
EXAM DESCRIPTION: CT - Head Brain Wo Cont - 05/20/2019 6:41 pm CLINICAL HISTORY: HEADACHE Headache, drowsiness COMPARISON: <Comparisons> TECHNIQUE: All CT scans are performed using dose optimization technique as appropriate and may inclu de automated exposure control or mA/KV adjustment according to patient size. FINDINGS: No intracranial hemorrhage, hydrocephalus or extra-axial fluid collection.No areas of brai n edema or evidence of midline shift. The paranasal sinuses and mastoids are clear. The calvarium is intact. IMPRESSION: No acute intracranial abnormality.
[2019-05-20 18:49] LABS: Basophils % 1.1 % (0-1.3); Eosinophils % 0.6 % (0-4.4); Lymphocytes % 29.8 % (15.3-44.8); MPV 8.7 fL (7.6-11.3); Monocytes % 5.5 % (3.3-12.3)
[2019-05-20 19:13] LABS: Bilirubin Direct 0.1 mg/dL (0-0.2); Bilirubin Total 0.3 mg/dL (0.2-1.0); Potassium 4.9 mmol/L (3.5-5.1); Protein, Total 8.2 g/dL (6.4-8.2)
[2019-05-20] MEDS ORDERED: DIPHENHYDRAMINE 50 MG/ML VIAL ONE (19:19)
[2019-05-20] MEDS ORDERED: KETOROLAC 30 MG/ML INJ ONE (19:19)
[2019-05-20] MEDS ORDERED: METOCLOPRAMIDE 10 MG/2mL INJ ONE (19:19)
[2019-05-20] MEDS ORDERED: NA CHLORIDE 0.9% 1,000 ML ONE (19:20)
[2019-05-20] MEDS ORDERED: CEFTRIAXONE/SWI 1gm 1 GM/10 ML SYR ONE (19:20)
[2019-05-20 19:37] LABS: Urine Blood TRACE (NEG); Urine Glucose NEGATIVE (NEG); Urine Protein 1+ (NEG); Urine Specific Gravity 1.015 (1.005-1.030)
[2019-05-20 19:39] LABS: Platelet Estimate ADEQ; Urine White Blood Cell Casts OK
[2019-05-20 19:40] LABS: Blood Morphology Comment NOT SEEN (NOT SEEN)
[2019-05-20] MEDS ORDERED: D50W 25 GM/50 ML SYRINGE IV ONE (20:11)
--- NOTE | 2019-05-20 20:16 | ER ---
Nurse's Notes [facility] Name: Genevieve Pompa Age: 63 yrs Sex: Female : 1955 Arrival Date: 05/20/2019 Time: 18:00 Bed 14 Private MD: Diagnosis: Cystitis, unspecified without hematuria;Acute kidney failure;Acidosis Presentation: 05/20 18:02 Presenting complaint: Patient states: Headache for the past 3 days, states that she has aj1 been taking ibuprofen at home with no relief. Denies hitting head. Transition of care: patient was not received from another setting of care. Onset of symptoms was May 17, 2019. Risk Assessment: Do you want to hurt yourself or someone else? Patient reports no desire to harm self or others. Initial Sepsis Screen: Does the patient meet any 2 criteria? No. Patient's initial sepsis screen is negative. Does the patient have a suspected source of infection? No. Patient's initial sepsis screen is negative. Care prior to arrival: None. 18:02 Method Of Arrival: Ambulatory [facility] 18:02 Acuity: DA 3 aj1 Triage Assessment: 18:03 Headache History: The patient has had previous headaches and this one is similar to aj1 previous episodes. General: Appears in no apparent distress. uncomfortable, Behavior is calm, cooperative, appropriate for age. Pain: Complains of pain in right caodaism and left caodaism Pain does not radiate. Pain currently is 9 out of 10 on a pain scale. Pain began 2-3 days ago. Also complains of no other associated symptoms. Neuro: Level of Consciousness is awake, alert, obeys commands. Cardiovascular: Patient's skin is warm and dry. Respiratory: Airway is patent Respiratory effort is even, unlabored, Respiratory pattern is regular, symmetrical. Historical: - Allergies: 18:03 Tylenol-Codeine #3; aj1 - Home Meds: 18:03 None [Active]; aj1 - PMHx: 18:03 Hypertension; aj1 - Immunization history:: Flu vaccine is not up to date. - Social history:: Smoking status: Patient uses tobacco products, denies chronic smoking, but will smoke occasionally, Patient/guardian denies using alcohol, street drugs, The patient lives with family. - Ebola Screening: : Patient denies travel to an Ebola-affected area in the 21 days before illness onset. - Family history:: not pertinent. - Hospitalizations: : No recent hospitalization is reported. Screenin:08 Abuse screen: Denies threats or abuse. Nutritional screening: No deficits noted. rb1 Tuberculosis screening: No symptoms or risk factors identified. Fall Risk None identified. Assessment: 18:08 General: Appears in no apparent distress. comfortable, Behavior is calm, cooperative. rb1 Pain: Complains of pain in left caodaism and right caodaism Pain currently is 10 out of 10 on a pain scale. Pain began x 3 days. Neuro: Level of Consciousness is awake, alert, obeys commands, Oriented to person, place, time, situation. Cardiovascular: Capillary refill < 3 seconds is brisk in bilateral fingers. Respiratory: Airway is patent Respiratory effort is even, unlabored, Respiratory pattern is regular, symmetrical. GI: Reports nausea, vomiting. : No signs and/or symptoms were reported regarding the genitourinary system. Derm: Skin is dry, Skin is normal, Skin temperature is warm. Musculoskeletal: Range of motion: intact in all extremities. 18:38 Reassessment: Pt. went to CT. rb1 19:00 Reassessment: Patient appears in no apparent distress at this time. Patient and/or jb4 family updated on plan of care and expected duration. Pain level reassessed. Patient is alert, oriented x 3, equal unlabored respirations, skin warm/dry/pink. 20:00 Reassessment: Patient appears in no apparent distress at this time. Patient and/or jb4 family updated on plan of care and expected duration. Pain level reassessed. Patient is alert, oriented x 3, equal unlabored respirations, skin warm/dry/pink. Provider at the bedside informing patient on plan of care. 21:11 Reassessment: Patient appears in no apparent distress at this time. Patient and/or jb4 family updated on plan of care and expected duration. Pain level reassessed. Patient is alert, oriented x 3, equal unlabored respirations, skin warm/dry/pink. PT left ED ambulatory with steady gate, verbalized understanding of d/c and follow up instructions. Verbalized leaving with all of patient belongings. Vital Signs: 18:03 BP 133 / 72; Pulse 85; Resp 18; Temp 98.3; Pulse Ox 100% on R/A; Weight 74.84 kg (R); aj1 Height 5 ft. 5 in. (165.10 cm) (R); 19:00 BP 117 / 71; Pulse 74; Resp 18; Pulse Ox 100% on R/A; jb4 20:00 BP 124 / 65; Pulse 81; Resp 16; Pulse Ox 100% on R/A; jb4 21:11 BP 136 / 83; Pulse 84; Resp 16; Pulse Ox 100% on R/A; jb4 18:03 Body Mass Index 27.46 (74.84 kg, 165.10 cm) aj1 ED Course: 18:00 Patient arrived in ED. mr 18:03 Triage completed. aj1 18:03 Arm band placed on Patient placed in an exam room. aj1 18:08 Dasia Meyer MD is Attending Physician. ma2 18:08 Patient has correct armband on for positive identification. Bed in low position. Call rb1 light in reach. Side rails up X 1. Pulse ox on. NIBP on. Warm blanket given. 18:09 Kassi Simon RN is Primary Nurse. rb1 18:[address] vm2 18:42 CT Head Brain wo Cont In Process Unspecified. EDMS 18:42 Inserted saline lock: 22 gauge in left wrist, using aseptic technique. Blood collected. 19:15 Report given to GUS Dixon. rb1 21:11 No provider procedures requiring assistance completed. IV discontinued, intact, jb4 bleeding controlled, No redness/swelling at site. Administered Medications: 19:10 Drug: NS 0.9% 1000 ml Route: IV; Rate: 1 bolus; Site: right hand; rb1 20:15 Follow up: Response: No adverse reaction; IV Status: Completed infusion; IV Intake: jb4 1000ml 19:10 Drug: Reglan 20 mg Route: IVP; Site: right hand; rb1 20:29 Follow up: Response: No adverse reaction jb4 19:10 Drug: Benadryl 50 mg Route: IVP; Site: right hand; rb1 20:29 Follow up: Response: No adverse reaction jb4 19:10 Drug: TORadol 60 mg Route: IVP; Site: right hand; rb1 20:28 Follow up: Response: No adverse reaction; Pain is decreased jb4 19:10 Drug: Rocephin 1 grams Route: IV; Rate: calculated rate; Site: right hand; rb1 19:12 Follow up: IV Status: Completed infusion; IV Intake: 10ml jb4 20:16 Follow up: Response: No adverse reaction jb4 20:02 Drug: D50W 50 ml Route: IVP; Site: right forearm; jb4 20:28 Follow up: Response: No adverse reaction; Blood sugar is elevated jb4 Point of Care Testing: Blood Glucose: 20:22 Blood Glucose: 165 mg/dL; jb4 Ranges: Intake: 19:12 IV: 10ml; Total: 10ml. jb4 20:15 IV: 1000ml; Total: 1010ml. jb4 Outcome: 20:14 Discharge ordered by . ma2 21:11 Discharged to home ambulatory. jb4 21:11 Condition: stable 21:11 Discharge instructions given to patient, Instructed on discharge instructions, follow up and referral plans. medication usage, Demonstrated understanding of instructions, follow-up care, medications, Prescriptions given X 2. 21:17 Patient left the ED. jb4 Signatures: Dispatcher [employer] EDMS Verito Cancino RN RN ch Johnson, Angela, RN RN aj1 Pam Nelsoner, Kassi, RN RN rb1 Rasta May RN RN jb4 Archana Marsh Mohammad, MD MD ma2 Corrections: (The following items were deleted from the chart) 20:14 20:13 Reassessment: Patient appears in no apparent distress at this time. Patient jb4 and/or family updated on plan of care and expected duration. Pain level reassessed. Patient is alert, oriented x 3, equal unlabored respirations, skin warm/dry/pink. jb4
--- NOTE | 2019-05-20 20:16 | EDPHYS ---
Physician Documentation [facility] Name: Genevieve Pompa Age: 63 yrs Sex: Female : 1955 Arrival Date: 05/20/2019 Time: 18:00 Bed 14 Private MD: ED Physician Dasia Meyer HPI: 05/20 20:08 This 63 yrs old Black Female presents to ER via Ambulatory with complaints of Headache. ma2 20:08 The patient complains of pain to the forehead. Onset: The symptoms/episode ma2 began/occurred gradually, 2 day(s) ago. Associated signs and symptoms: Pertinent negatives: altered mental status, fever, neck stiffness, paresthesias. Severity of symptoms: At its worst the pain was moderate, in the emergency department the pain is unchanged. Headache History: The patient has had previous headaches and this one is similar to previous episodes. The patient has experienced similar episodes in the past. Historical: - Allergies: 18:03 Tylenol-Codeine #3; aj1 - Home Meds: 18:03 None [Active]; aj1 - PMHx: 18:03 Hypertension; aj1 - Immunization history:: Flu vaccine is not up to date. - Social history:: Smoking status: Patient uses tobacco products, denies chronic smoking, but will smoke occasionally, Patient/guardian denies using alcohol, street drugs, The patient lives with family. - Ebola Screening: : Patient denies travel to an Ebola-affected area in the 21 days before illness onset. - Family history:: not pertinent. - Hospitalizations: : No recent hospitalization is reported. ROS: 20:08 Constitutional: Negative for fever, chills, and weight loss, Cardiovascular: Negative ma2 for chest pain, palpitations, and edema, Respiratory: Negative for shortness of breath, cough, wheezing, and pleuritic chest pain, Abdomen/GI: Negative for abdominal pain, nausea, diarrhea, and constipation, Back: Negative for injury and pain, MS/Extremity: Negative for injury and deformity, Psych: Negative for depression, anxiety, suicide ideation, homicidal ideation, and hallucinations, Allergy/Immunology: Negative for hives, rash, and allergies. 20:08 Neuro: Positive for headache, Negative for hearing loss, speech changes, syncope, acute changes. Exam: 20:08 Constitutional: This is a well developed, well nourished patient who is awake, alert, ma2 and in no acute distress. Chest/axilla: Normal chest wall appearance and motion. Nontender with no deformity. No lesions are appreciated. Cardiovascular: Regular rate and rhythm with a normal S1 and S2. No gallops, murmurs, or rubs. Normal PMI, no JVD. No pulse deficits. Respiratory: Lungs have equal breath sounds bilaterally, clear to auscultation and percussion. No rales, rhonchi or wheezes noted. No increased work of breathing, no retractions or nasal flaring. Abdomen/GI: Soft, non-tender, with normal bowel sounds. No distension or tympany. No guarding or rebound. No evidence of tenderness throughout. MS/ Extremity: Pulses equal, no cyanosis. Neurovascular intact. Full, normal range of motion. Neuro: Awake and alert, GCS 15, oriented to person, place, time, and situation. Cranial nerves II-XII grossly intact. Motor strength 5/5 in all extremities. Sensory grossly intact. Cerebellar exam normal. Normal gait. Vital Signs: 18:03 BP 133 / 72; Pulse 85; Resp 18; Temp 98.3; Pulse Ox 100% on R/A; Weight 74.84 kg (R); aj1 Height 5 ft. 5 in. (165.10 cm) (R); 19:00 BP 117 / 71; Pulse 74; Resp 18; Pulse Ox 100% on R/A; jb4 20:00 BP 124 / 65; Pulse 81; Resp 16; Pulse Ox 100% on R/A; jb4 21:11 BP 136 / 83; Pulse 84; Resp 16; Pulse Ox 100% on R/A; jb4 18:03 Body Mass Index 27.46 (74.84 kg, 165.10 cm) aj1 MDM: 18:09 Patient medically screened. ma2 20:08 Differential diagnosis: migraine, uti, tension headach e. Data reviewed: vital signs, ma2 nurses notes, long-term records, lab test result(s), EKG. Counseling: I had a detailed discussion with the patient and/or guardian regarding: the historical points, exam findings, and any diagnostic results supporting the discharge/admit diagnosis, the presence of at least one elevated blood pressure reading (>120/80) during this emergency department visit, the need for outpatient follow up. Response to treatment: the patient's symptoms have markedly improved after treatment. ED course: i recommend admission for elevated anion gap, UTI, headache, bicarb of 10, and worsening of creatinine from 1.6 in the past to 1.9 today, she does not want to be admitted as she want to go home to take care of her son. she will see her pcp tomorrow or return to er tomorrow. she understand all risk associated with this . 05/20 18:18 Order name: Basic Metabolic Panel [facility] 05/20 18:18 Order name: CBC with Diff; Complete Time: 19:55 pr2 05/20 18:18 Order name: Creatinine for Radiology; Complete Time: 19:20 [facility] 05/20 18:18 Order name: Hepatic Function; Complete Time: 19:20 pr2 05/20 18:18 Order name: Lipase; Complete Time: 19:20 pr2 05/20 18:23 Order name: Basic Metabolic Panel; Complete Time: 19:20 EDME 05/20 18:18 Order name: CT Head Brain wo Cont; Complete Time: 19:20 [facility] 05/20 18:53 Order name: Urine Dipstick--Ancillary (enter results); Complete Time: 19:55 ag 05/20 19:11 Order name: CBC Smear Scan; Complete Time: 19:55 EDME 05/20 18:18 Order name: IV Saline Lock; Complete Time: 19:22 pr2 05/20 18:18 Order name: Labs collected and sent; Complete Time: 19:22 [facility] 05/20 18:18 Order name: Urine Dipstick-Ancillary (obtain specimen); Complete Time: 19:22 ma2 Administered Medications: 19:10 Drug: NS 0.9% 1000 ml Route: IV; Rate: 1 bolus; Site: right hand; rb1 20:15 Follow up: Response: No adverse reaction; IV Status: Completed infusion; IV Intake: jb4 1000ml 19:10 Drug: Reglan 20 mg Route: IVP; Site: right hand; rb1 20:29 Follow up: Response: No adverse reaction jb4 19:10 Drug: Benadryl 50 mg Route: IVP; Site: right hand; rb1 20:29 Follow up: Response: No adverse reaction jb4 19:10 Drug: TORadol 60 mg Route: IVP; Site: right hand; rb1 20:28 Follow up: Response: No adverse reaction; Pain is decreased jb4 19:10 Drug: Rocephin 1 grams Route: IV; Rate: calculated rate; Site: right hand; rb1 19:12 Follow up: IV Status: Completed infusion; IV Intake: 10ml jb4 20:16 Follow up: Response: No adverse reaction jb4 20:02 Drug: D50W 50 ml Route: IVP; Site: right forearm; jb4 20:28 Follow up: Response: No adverse reaction; Blood sugar is elevated jb4 Point of Care Testing: Blood Glucose: 20:22 Blood Glucose: 165 mg/dL; jb4 Ranges: Critical Glucose Levels:Adult <50 mg/dl or >400 mg/dl <40 mg/dl or >180 mg/dl Disposition: 05/20/19 20:14 Discharged to Home. Impression: Cystitis, unspecified without hematuria, Acute kidney failure, Acidosis. - Condition is Stable. - Discharge Instructions: Urinary Tract Infection, Adult. - Prescriptions for Reglan 10 mg Oral Tablet - take 1 tablet by ORAL route every 6 hours . take 30 minutes before meals and at bedtime; 100 tablet. Bactrim DS 800- 160 mg Oral Tablet - take 1 tablet by ORAL route every 12 hours for 5 days; 10 tablet. - Medication Reconciliation Form, Thank You Letter, Antibiotic Education, Prescription Opioid Use form. - Follow up: Private Physician; When: Tomorrow; Reason: If symptoms return, Continuance of care. Signatures: Dispatcher [employer] [facility] Valery Boone RN RN aj1 Kassi Simon RN RN rb1 Rasta May RN RN jb4 Dasia Meyer MD MD ma2 Corrections: (The following items were deleted from the chart) 19:11 19:10 Manual Differential ordered. EDME EDMS 20:18 20:02 Chest Single View+RAD.RAD.BRZ ordered. EDME EDMS 21:17 20:14 05/20/2019 20:14 Discharged to Home. Impression: Cystitis, unspecified without jb4 hematuria; Acute kidney failure; Acidosis. Condition is Stable. Forms are Medication Reconciliation Form, Thank You Letter, Antibiotic Education, Prescription Opioid Use. Follow up: Private Physician; When: Tomorrow; Reason: If symptoms return, Continuance of care. ma2
[2019-05-20 21:26] VITALS: TEMP 98.3; O2SAT 100
[2019-05-20 21:30] VITALS: BP 136/83
== END 2019-05-20 21:17 | disposition home or self-care (01) ==
LOC: ER 17:54
DX: N30.90 Cystitis, unspecified without hematuria (principal); N17.9 Acute kidney failure, unspecified; E87.2 Acidosis; I10 Essential (primary) hypertension; Z88.5 Allergy status to narcotic agent; Z72.0 Tobacco use
CPT/HCPCS: 36415; 70450; 80048; 80076; 81003; 82962; 83690; 85025; 99284; J0696; J2765; J7030

== ENCOUNTER 2019-08-13 10:17 | Emergency (ER) | payer SELFPAY ==
--- OUTSIDE RECORDS SUMMARY | 2019-08-13 10:19 | XMS REPORT | Clinical Summary ---
:1955 Author Organization [facility] Address [address] [place] [id number] Care Team Providers Name Role Phone Kacey [...] Not on file Results Not on fileafter 08/12/2018
[2019-08-13] MEDS ORDERED: FENTANYL CITR 100 MCG/2 ML ONE (10:59)
[2019-08-13] MEDS ORDERED: dexAMETHasone 10 MG/ML VIAL ONE (10:59)
[2019-08-13 11:18] LABS: Absolute Lymphocytes (CBC) 2.3 K/uL (0.7-4.9); Hematocrit 32.4 % (36.0-45.0); Lymphocytes % 29.8 % (15.3-44.8); MPV 8.8 fL (7.6-11.3)
--- NOTE | 2019-08-13 11:37 | RAD REPORT ---
EXAM DESCRIPTION: RAD - Hand Right 3 View - 08/13/2019 11:25 am CLINICAL HISTORY: Right hand pain, severe swelling of the right hand for 1 week COMPARISON: None. FINDINGS: No fracture is identified. There is no dislocation or periosteal reaction noted. Signific ant degenerative changes are present at the third PIP joint with marginal spurring and joint space na rrowing. No erosive change. Milder degenerative changes involve the remaining IP joints of the hand. No erosive or destructive changes at these other joints. Moderate degenerative changes seen at the first MCP joint with mild joint space narrowing at the thir d MCP joint. No spurring or erosive component. Degenerative changes at the trapezial first metacarpal is present but mild. There are degenerative cy stic changes in multiple carpal bones. Radiocarpal joint space is narrowed with scapholunate joint sp moshe widening. Significant degenerative change involves the triangular fibrocartilage region. Patient has diffuse soft tissue swelling over the dorsum of the hand and wrist. No associated air, fo reign body or soft tissue calcification. IMPRESSION: Prominent soft tissue swelling over the dorsum of the right hand and wrist. No air, fore ign body or calcification in the soft tissues. Patient has significant degenerative change at the radiocarpal joint space with scattered degenerativ e change elsewhere in the hand. An acute bone process not seen.
--- NOTE | 2019-08-13 12:19 | ER ---
Nurse's Notes [facility] Name: Genevieve Pompa Age: 63 yrs Sex: Female : 1955 Arrival Date: 08/13/2019 Time: 10:20 Bed 8 Private MD: Diagnosis: Other specified arthritis, right hand Presentation: 08/13 10:43 Presenting complaint: Patient states: tingling/pain to right wrist and right hand since iw last , increased swelling to right hand since Sunday, denies injury or open wound to hand. Transition of care: patient was not received from another setting of care. Onset of symptoms was August 07, 2019. Risk Assessment: Do you want to hurt yourself or someone else? Patient reports no desire to harm self or others. Initial Sepsis Screen: Does the patient meet any 2 criteria? No. Patient's initial sepsis screen is negative. Does the patient have a suspected source of infection? No. Patient's initial sepsis screen is negative. Care prior to arrival: None. 10:43 Method Of Arrival: Ambulatory iw 10:43 Acuity: DA 3 iw Historical: - Allergies: 10:45 Tylenol-Codeine #3; iw - Home Meds: 10:45 None [Active]; iw - PMHx: 10:45 Hypertension; iw - PSHx: 10:45 None; iw - Immunization history:: Adult Immunizations not up to date. - Social history:: Smoking status: Patient uses tobacco products, denies chronic smoking, but will smoke occasionally, cigars. - Ebola Screening: : Patient negative for fever greater than or equal to 101.5 degrees Fahrenheit, and additional compatible Ebola Virus Disease symptoms Patient denies exposure to infectious person Patient denies travel to an Ebola-affected area in the 21 days before illness onset No symptoms or risks identified at this time. Screenin:00 Abuse screen: Denies threats or abuse. Denies injuries from another. Nutritional jl7 screening: No deficits noted. Tuberculosis screening: No symptoms or risk factors identified. Fall Risk IV access (20 points). Total Fletcher Fall Scale indicates No Risk (0-24 pts). Assessment: 11:00 General: Appears in no apparent distress. uncomfortable, Behavior is calm, cooperative, jl7 appropriate for age. Pain: Complains of pain in right hand Pain currently is 8 out of 10 on a pain scale. Quality of pain is described as throbbing, Pain began 2-3 days ago. Is continuous. Neuro: Level of Consciousness is awake, alert, obeys commands, Oriented to person, place, time, situation. Cardiovascular: Patient's skin is warm and dry. Respiratory: Airway is patent Respiratory effort is even, unlabored, Respiratory pattern is regular, symmetrical. Derm: Skin is pink, warm \T\ dry. Musculoskeletal: Swelling present in right hand. 11:30 Reassessment: Pt reports decreased pain, rated 6/10 at this time. jl7 12:42 Reassessment: Pt will be discharged once fluids are done infusing. jl7 Vital Signs: 10:45 BP 132 / 86; Pulse 83; Resp 16; Temp 98.3(O); Pulse Ox 98% on R/A; Weight 68.95 kg; 3 Height 5 ft. 5 in. (165.10 cm); Pain 8/10; 13:58 BP 136 / 76; Pulse 64; Resp 16 S; Pulse Ox 100% on R/A; jl7 10:45 Body Mass Index 25.30 (68.95 kg, 165.10 cm) 3 ED Course: 10:20 Patient arrived in ED. mr 10:39 Erich Martinez, GUS is Primary Nurse. jl7 10:45 Triage completed. iw 10:45 Arm band placed on. iw 10:48 Willie Bagley NP is PHCP. pm1 10:48 James Cabrales MD is Attending Physician. pm1 11:00 Patient has correct armband on for positive identification. Bed in low position. Call [facility] light in reach. Side rails up X 1. Pulse ox on. NIBP on. Warm blanket given. 11:12 Initial lab(s) drawn, by va, sent to lab. Inserted saline lock: 22 gauge in left jl7 antecubital area, using aseptic technique. Blood collected. 11:26 Hand Right 3 View XRAY In Process Unspecified. EDMS 13:50 Sling applied to right arm. jl7 13:58 No provider procedures requiring assistance completed. IV discontinued, intact, jl7 bleeding controlled, No redness/swelling at site. Pressure dressing applied. Administered Medications: 11:08 Drug: Decadron - Dexamethasone 10 mg Route: IVP; Site: left antecubital; jl7 11:30 Follow up: Response: No adverse reaction; Pain is decreased jl7 11:10 Drug: fentaNYL (PF) 25 mcg Route: IVP; Site: left antecubital; jl7 11:30 Follow up: Response: No adverse reaction; Pain is decreased jl7 12:42 Drug: NS 0.9% 1000 ml Route: IV; Rate: 1000 ml; Site: left antecubital; jl7 13:58 Follow up: Response: No adverse reaction; IV Status: Completed infusion jl7 Outcome: 12:17 Discharge ordered by MD. pm1 13:58 Discharged to home ambulatory. jl7 13:58 Condition: stable 13:58 Discharge instructions given to patient, Instructed on discharge instructions, follow up and referral plans. medication usage, Demonstrated understanding of instructions, follow-up care, medications, Prescriptions given X 3. 14:00 Patient left the ED. jl7 Signatures: Dispatcher [employer] TRAMOK NelsonPam cobb Irene, RN RN iw Willie Bagley, IRRIGATION PUMP INSTALLER IRRIGATION PUMP INSTALLER pm1 Erich Martinez RN RN jl7 Shannan Healy 3 Corrections: (The following items were deleted from the chart) 11:00 10:45 BP 132 / 86; Pulse 83bpm; Resp 16bpm; Pulse Ox 98% RA; 68.95 kg; Height 5 ft. 5 dh3 in.; BMI: 25.2; Pain 8/10; iw
--- NOTE | 2019-08-13 12:20 | EDPHYS ---
Physician Documentation [facility] Name: Genevieve Pompa Age: 63 yrs Sex: Female : 1955 Arrival Date: 08/13/2019 Time: 10:20 Bed 8 Private MD: ED Physician James Cabrales HPI: 08/13 11:50 This 63 yrs old Black Female presents to ER via Ambulatory with complaints of Hand pm1 Swelling. 11:50 The patient or guardian reports pain, swelling. The complaints affect the right hand. pm1 Context: The problem was sustained at home, resulted from an unknown cause. Onset: The symptoms/episode began/occurred 6 day(s) ago. Modifying factors: The symptoms are alleviated by holding still, the symptoms are aggravated by movement. Associated signs and symptoms: Pertinent negatives: cyanosis distally, decreased sensation distally, fever, numbness distally, tingling distally. Severity of symptoms: in the emergency department the symptoms are actually worse. The patient has experienced a previous episode, same occurrence to left hand a few years ago. Patient with history of RA. The patient has not recently seen a physician. Historical: - Allergies: 10:45 Tylenol-Codeine #3; iw - Home Meds: 10:45 None [Active]; iw - PMHx: 10:45 Hypertension; iw - PSHx: 10:45 None; iw - Immunization history:: Adult Immunizations not up to date. - Social history:: Smoking status: Patient uses tobacco products, denies chronic smoking, but will smoke occasionally, cigars. - Ebola Screening: : Patient negative for fever greater than or equal to 101.5 degrees Fahrenheit, and additional compatible Ebola Virus Disease symptoms Patient denies exposure to infectious person Patient denies travel to an Ebola-affected area in the 21 days before illness onset No symptoms or risks identified at this time. ROS: 11:50 Constitutional: Negative for fever, chills, and weight loss, Eyes: Negative for injury, pm1 pain, redness, and discharge, ENT: Negative for injury, pain, and discharge, Neck: Negative for injury, pain, and swelling, Cardiovascular: Negative for chest pain, palpitations, and edema, Respiratory: Negative for shortness of breath, cough, wheezing, and pleuritic chest pain, Abdomen/GI: Negative for abdominal pain, nausea, vomiting, diarrhea, and constipation, Back: Negative for injury and pain. 11:50 Skin: Negative for injury, rash, and discoloration, Neuro: Negative for headache, weakness, numbness, tingling, and seizure. 11:50 MS/extremity: Positive for pain, swelling, of the right hand, Negative for decreased range of motion, deformity. Exam: 11:50 Constitutional: This is a well developed, well nourished patient who is awake, alert, pm1 and in no acute distress. Head/Face: Normocephalic, atraumatic. Neck: Trachea midline, no thyromegaly or masses palpated, and no cervical lymphadenopathy. Supple, full range of motion without nuchal rigidity, or vertebral point tenderness. No Meningismus. Chest/axilla: Normal chest wall appearance and motion. Nontender with no deformity. No lesions are appreciated. Cardiovascular: Regular rate and rhythm with a normal S1 and S2. No gallops, murmurs, or rubs. Normal PMI, no JVD. No pulse deficits. Respiratory: Lungs have equal breath sounds bilaterally, clear to auscultation and percussion. No rales, rhonchi or wheezes noted. No increased work of breathing, no retractions or nasal flaring. Abdomen/GI: Soft, non-tender, with normal bowel sounds. No distension or tympany. No guarding or rebound. No evidence of tenderness throughout. Back: No spinal tenderness. No costovertebral tenderness. Full range of motion. Skin: Warm, dry with normal turgor. Normal color with no rashes, no lesions, and no evidence of cellulitis. 11:50 Musculoskeletal/extremity: Extremities: grossly normal except: noted in the right hand: swelling, tenderness, deformity to knuckles with appearance of rheumatoid arthritis, Circulation is intact in all extremities. Sensation intact. Vital Signs: 10:45 BP 132 / 86; Pulse 83; Resp 16; Temp 98.3(O); Pulse Ox 98% on R/A; Weight 68.95 kg; dh3 Height 5 ft. 5 in. (165.10 cm); Pain 8/10; 13:58 BP 136 / 76; Pulse 64; Resp 16 S; Pulse Ox 100% on R/A; jl7 10:45 Body Mass Index 25.30 (68.95 kg, 165.10 cm) dh3 MDM: 10:48 Patient medically screened. pm1 12:15 Data reviewed: vital signs. Data interpreted: Pulse oximetry: on room air is 98 %. pm1 Interpretation: normal. Counseling: I had a detailed discussion with the patient and/or guardian regarding: the historical points, exam findings, and any diagnostic results supporting the discharge/admit diagnosis, lab results, radiology results, the need for outpatient follow up, to return to the emergency department if symptoms worsen or persist or if there are any questions or concerns that arise at home. 08/13 10:56 Order name: CBC with Diff; Complete Time: 11:41 pm1 08/13 10:56 Order name: BMP; Complete Time: 11:58 pm1 08/13 10:54 Order name: Hand Right 3 View XRAY; Complete Time: 11:58 pm1 08/13 10:56 Order name: IV Saline Lock; Complete Time: 11:12 pm1 08/13 12:07 Order name: Sling; Complete Time: 13:58 pm1 Administered Medications: 11:08 Drug: Decadron - Dexamethasone 10 mg Route: IVP; Site: left antecubital; jl7 11:30 Follow up: Response: No adverse reaction; Pain is decreased jl7 11:10 Drug: fentaNYL (PF) 25 mcg Route: IVP; Site: left antecubital; jl7 11:30 Follow up: Response: No adverse reaction; Pain is decreased jl7 12:42 Drug: NS 0.9% 1000 ml Route: IV; Rate: 1000 ml; Site: left antecubital; jl7 13:58 Follow up: Response: No adverse reaction; IV Status: Completed infusion jl7 Disposition: 08/14 07:02 Co-signature as Attending Physician, James Cabrales MD I agree with the assessment and kdr plan of care. Disposition: 08/13/19 12:17 Discharged to Home. Impression: Other specified arthritis, right hand. - Condition is Stable. - Discharge Instructions: Arthritis, Rheumatoid Arthritis, How to Use a Sling. - Prescriptions for Doxycycline Hyclate 100 mg Oral Tablet - take 1 tablet by ORAL route every 12 hours; 20 tablet. Medrol (Corey) 4 mg Oral Tablets, Dose Pack - take 1 tablet by ORAL route as directed - follow package instructions; 1 packet. Tramadol 50 mg Oral Tablet - take 1 tablet by ORAL route every 8 hours as needed; 12 tablet. - Medication Reconciliation Form, Thank You Letter, Antibiotic Education, Prescription Opioid Use form. - Follow up: Emergency Department; When: As needed; Reason: Worsening of condition. Follow up: Private Physician; When: 2 - 3 days; Reason: Recheck today's complaints, Continuance of care, Re-evaluation by your physician. - Problem is new. - Symptoms have improved. Signatures: Dispatcher [employer] EDMS James Cabrales MD MD kdr Zeina Calixto RN RN iw Willie Bagley NP [employer]PER[employer] pm1 Erich Martinez RN RN jl7 Corrections: (The following items were deleted from the chart) 08/13 14:00 12:17 08/13/2019 12:17 Discharged to Home. Impression: Other specified arthritis, right jl7 hand. Condition is Stable. Forms are Medication Reconciliation Form, Thank You Letter, Antibiotic Education, Prescription Opioid Use. Follow up: Emergency Department; When: As needed; Reason: Worsening of condition. Follow up: Private Physician; When: 2 - 3 days; Reason: Recheck today's complaints, Continuance of care, Re-evaluation by your physician. Problem is new. Symptoms have improved. pm1
[2019-08-13] MEDS ORDERED: NA CHLORIDE 0.9% 1,000 ML ONE (12:37)
[2019-08-13 14:16] VITALS: TEMP 98.3
[2019-08-13 14:18] VITALS: BP 136/76; O2SAT 100
[2019-08-13] MEDS ORDERED: INSULIN GLARGINE 100 UNITS/ML SQ ONE (16:45)
== END 2019-08-13 14:00 | disposition home or self-care (01) ==
LOC: ER 10:17
DX: M19.041 Primary osteoarthritis, right hand (principal); I10 Essential (primary) hypertension; Z72.0 Tobacco use; Z88.5 Allergy status to narcotic agent
CPT/HCPCS: 36415; 80048; 85025; 96361; 96374; 96375; 99284; J1100; J3010; J7030

== ENCOUNTER 2019-11-10 07:53 | Emergency (ER) | payer SELFPAY ==
--- NOTE | 2019-11-10 08:11 | EDPHYS ---
Physician Documentation [facility] Name: Genevieve Pompa Age: 63 yrs Sex: Female : 1955 Arrival Date: 11/10/2019 Time: 07:55 Bed 16 Private MD: ED Physician Dasia Meyer HPI: 11/10 08:08 This 63 yrs old Black Female presents to ER via Unassigned with complaints of Arm Pain, ma2 Arm swelling. 08:08 The patient or guardian complains of decreased range of motion, pain. The complaints ma2 affect the anterior aspect of right shoulder. Onset: The symptoms/episode began/occurred gradually, 1 week(s) ago. Severity of symptoms: At their worst the symptoms were mild, in the emergency department the symptoms are unchanged. The patient has experienced similar episodes in the past. Historical: - Allergies: 08:10 Tylenol-Codeine #3; ss - PMHx: 08:10 Hypertension; Arthritis; ss - Immunization history:: Adult Immunizations up to date. - Social history:: Patient uses Patient/guardian denies using alcohol, street drugs, The patient lives with family, Smoking status: Patient/guardian denies using tobacco. - Family history:: not pertinent. - Ebola Screening: : Patient denies exposure to infectious person Patient denies travel to an Ebola-affected area in the 21 days before illness onset. ROS: 08:08 Constitutional: Negative for fever, chills, and weight loss. ma2 08:08 All other systems are negative. Exam: 08:08 Constitutional: This is a well developed, well nourished patient who is awake, alert, ma2 and in no acute distress. Chest/axilla: Normal chest wall appearance and motion. Nontender with no deformity. No lesions are appreciated. Cardiovascular: Regular rate and rhythm with a normal S1 and S2. No gallops, murmurs, or rubs. Normal PMI, no JVD. No pulse deficits. Respiratory: Lungs have equal breath sounds bilaterally, clear to auscultation and percussion. No rales, rhonchi or wheezes noted. No increased work of breathing, no retractions or nasal flaring. Abdomen/GI: Soft, non-tender, with normal bowel sounds. No distension or tympany. No guarding or rebound. No evidence of tenderness throughout. Skin: Warm, dry with normal turgor. Normal color with no rashes, no lesions, and no evidence of cellulitis. MS/ Extremity: right shoulder pain and ttp, and decreased rom, no redness or effusion or warmth., Pulses equal, no cyanosis. Neurovascular intact. Full, normal range of motion. Neuro: Awake and alert, GCS 15, oriented to person, place, time, and situation. Cranial nerves II-XII grossly intact. Motor strength 5/5 in all extremities. Sensory grossly intact. Cerebellar exam normal. Normal gait. Vital Signs: 08:10 BP 135 / 95; Pulse 98; Resp 16; Temp 98.6(TE); Pulse Ox 98% on R/A; Weight 72.57 kg; ss Height 5 ft. 5 in. (165.10 cm); Pain 9/10; 08:10 Body Mass Index 26.63 (72.57 kg, 165.10 cm) ss MDM: 07:59 Patient medically screened. ma2 08:08 Differential diagnosis: tendonitis, arthritis. Differential diagnosis: contusion, ma2 abrasion. Data reviewed: vital signs, nurses notes. Counseling: I had a detailed discussion with the patient and/or guardian regarding: the historical points, exam findings, and any diagnostic results supporting the discharge/admit diagnosis, the presence of at least one elevated blood pressure reading (>120/80) during this emergency department visit. Response to treatment: the patient's symptoms have markedly improved after treatment. Administered Medications: 08:18 Drug: TORadol 30 mg Route: IM; Site: left deltoid; tr5 08:32 Follow up: Response: No adverse reaction tr5 Disposition: 11/10/19 08:10 Discharged to Home. Impression: Monoarthritis, not elsewhere classified, right shoulder. - Condition is Stable. - Discharge Instructions: Arthritis, Shoulder Range of Motion Exercises. - Prescriptions for Tramadol 50 mg Oral Tablet - take 1 tablet by ORAL route every 8 hours as needed; 12 tablet. Medrol (Corey) 4 mg Oral Tablets, Dose Pack - take 1 tablet by ORAL route as directed - follow package instructions; 1 packet. - Medication Reconciliation Form, Thank You Letter, Antibiotic Education, Prescription Opioid Use form. - Follow up: Private Physician; When: Tomorrow; Reason: Continuance of care. Signatures: Elissa Luevano RN RN ss Dasia Meyer MD MD ma2 Ulysses Khan RN RN tr5 Corrections: (The following items were deleted from the chart) 08:33 08:10 11/10/2019 08:10 Discharged to Home. Impression: Monoarthritis, not elsewhere tr5 classified, right shoulder. Condition is Stable. Forms are Medication Reconciliation Form, Thank You Letter, Antibiotic Education, Prescription Opioid Use. Follow up: Private Physician; When: Tomorrow; Reason: Continuance of care. maDelvis
--- NOTE | 2019-11-10 08:11 | ER ---
Nurse's Notes [facility] Name: Genevieve Pompa Age: 63 yrs Sex: Female : 1955 Arrival Date: 11/10/2019 Time: 07:55 Bed 16 Private MD: Diagnosis: Monoarthritis, not elsewhere classified, right shoulder Presentation: 11/10 08:04 Presenting complaint: Patient states: R shoulder pain and hand swelling that began 3 ss days ago. Patient believes it is a flare up of her arthritis. Transition of care: patient was not received from another setting of care. Onset of symptoms was November 07, 2019. Risk Assessment: Do you want to hurt yourself or someone else? Patient reports no desire to harm self or others. Initial Sepsis Screen: Does the patient meet any 2 criteria? No. Patient's initial sepsis screen is negative. Does the patient have a suspected source of infection? No. Patient's initial sepsis screen is negative. Care prior to arrival: None. 08:04 Acuity: DA 5 ss 08:04 Method Of Arrival: Ambulatory ss Historical: - Allergies: 08:10 Tylenol-Codeine #3; ss - PMHx: 08:10 Hypertension; Arthritis; ss - Immunization history:: Adult Immunizations up to date. - Social history:: Patient uses Patient/guardian denies using alcohol, street drugs, The patient lives with family, Smoking status: Patient/guardian denies using tobacco. - Family history:: not pertinent. - Ebola Screening: : Patient denies exposure to infectious person Patient denies travel to an Ebola-affected area in the 21 days before illness onset. Screenin:20 Abuse screen: Denies threats or abuse. Denies injuries from another. Nutritional tr5 screening: No deficits noted. Tuberculosis screening: No symptoms or risk factors identified. Fall Risk None identified. Assessment: 08:20 General: Appears in no apparent distress. Behavior is calm, cooperative. Pain: Pain tr5 currently is 8 out of 10 on a pain scale. Neuro: Level of Consciousness is awake, alert, obeys commands, Oriented to person, place, time, situation. Cardiovascular: Capillary refill < 3 seconds Patient's skin is warm and dry. Respiratory: Airway is patent Respiratory effort is even, unlabored, Respiratory pattern is regular, symmetrical. Musculoskeletal: Reports right arm pain, chronic. Vital Signs: 08:10 BP 135 / 95; Pulse 98; Resp 16; Temp 98.6(TE); Pulse Ox 98% on R/A; Weight 72.57 kg; ss Height 5 ft. 5 in. (165.10 cm); Pain 9/10; 08:10 Body Mass Index 26.63 (72.57 kg, 165.10 cm) ED Course: 07:55 Patient arrived in ED. mr 07:58 Dasia Meyer MD is Attending Physician. [facility] 08:08 Ulysses Khan, RN is Primary Nurse. tr5 08:09 Triage completed. ss 08:10 Arm band placed on right wrist. ss 08:12 Patient has correct armband on for positive identification. Bed in low position. Call tr5 light in reach. 08:12 No provider procedures requiring assistance completed. Patient did not have IV access tr5 during this emergency room visit. Administered Medications: 08:18 Drug: TORadol 30 mg Route: IM; Site: left deltoid; tr5 08:32 Follow up: Response: No adverse reaction tr5 Outcome: 08:10 Discharge ordered by . [facility] 08:33 Discharged to home ambulatory. tr5 08:33 Condition: stable 08:33 Discharge instructions given to patient, Instructed on discharge instructions, follow up and referral plans. medication usage, Demonstrated understanding of instructions, follow-up care, medications, Prescriptions given X 2. 08:33 Patient left the ED. tr5 Signatures: Pam Nelson mr LuevanoElissa RN RN Dasia Meyer MD MD kyUlysses Hernandez RN RN tr5
[2019-11-10] MEDS ORDERED: KETOROLAC 30 MG/ML INJ ONE (08:15)
[2019-11-10 08:39] VITALS: BP 135/95; TEMP 98.6; O2SAT 98
== END 2019-11-10 08:33 | disposition home or self-care (01) ==
LOC: ER 07:53
DX: M13.111 Monoarthritis, not elsewhere classified, right shoulder (principal); I10 Essential (primary) hypertension; Z88.5 Allergy status to narcotic agent
CPT/HCPCS: 96372; 99283

== ENCOUNTER 2020-05-09 12:20 | Emergency (ER) | payer SELFPAY ==
--- OUTSIDE RECORDS SUMMARY | 2020-05-09 12:23 | XMS REPORT | Clinical Summary ---
:1955 Author Organization [facility] Address [address] [place] [id number] Care Team Providers Name Role Phone Kacey [...] Not on file Results Not on fileafter 05/09/2019
[2020-05-09] MEDS ORDERED: LIDOCAINE 1% 20 ML MDV ONE (13:26)
[2020-05-09] MEDS ORDERED: HYDROCODONE/APAP 10/325 TAB ONE (13:35)
--- NOTE | 2020-05-09 14:11 | RAD REPORT ---
EXAM DESCRIPTION: US - Extremity Venous Uni Ltd - 05/09/2020 1:49 pm CLINICAL HISTORY: Pain;Swelling COMPARISON: None. TECHNIQUE: Real-time sonographic evaluation of the left lower extremity deep venous system was perfo rmed. FINDINGS: Normal compressibility, flow augmentation, phasic flow and spontaneous flow are identified in the left lower extremity common femoral, superficial femoral, popliteal and posterior tibial vein s. No intraluminal filling defects seen. Soft tissue edema is seen in the calf. No focal mass or abn ormal fluid collection. IMPRESSION: No DVT in the left lower extremity.
--- NOTE | 2020-05-09 15:37 | ER ---
Nurse's Notes [facility] Name: Genevieve Pompa Age: 64 yrs Sex: Female : 1955 Arrival Date: 05/09/2020 Time: 12:22 Bed 19 Private MD: Diagnosis: Gout due to renal impairment, left knee Presentation: 05/09 12:44 Chief complaint: Patient states: has hx of arthritis, left knee swelled up 2 days ago iw and has gotten worse, can't put weight on left leg now. Coronavirus screen: Proceed with normal triage. Patient denies a cough. Patient denies shortness of breath or difficulty breathing. Patient denies measured and/or subjective temperature greater than 100.4F prior to today's visit. Patient denies travel on a cruise ship or to a country the [facility] currently lists as an affected area. Patient denies contact with known and/or suspected case of COVID-19. Ebola Screen: Patient negative for fever greater than or equal to 101.5 degrees Fahrenheit, and additional compatible Ebola Virus Disease symptoms Patient denies exposure to infectious person. Patient denies travel to an Ebola-affected area in the 21 days before illness onset. No symptoms or risks identified at this time. Initial Sepsis Screen: Does the patient meet any 2 criteria? No. Patient's initial sepsis screen is negative. Does the patient have a suspected source of infection? No. Patient's initial sepsis screen is negative. Risk Assessment: Do you want to hurt yourself or someone else? Patient reports no desire to harm self or others. Onset of symptoms was May 07, 2020. 12:44 Method Of Arrival: Wheelchair iw 12:44 Acuity: DA 3 iw Historical: - Allergies: 12:45 Codeine; iw - Home Meds: 12:45 None [Active]; iw - PMHx: 12:45 Hypertension; Arthritis; iw - PSHx: 12:45 None; iw - Immunization history:: Adult Immunizations up to date. - Social history:: Smoking status: Patient reports the use of cigarette tobacco products, denies chronic smoking, but will smoke occasionally. Screenin:00 Abuse screen: Denies threats or abuse. Nutritional screening: No deficits noted. rb1 Tuberculosis screening: No symptoms or risk factors identified. Fall Risk No fall in past 12 months (0 pts). Secondary diagnosis (15 points) impaired mobility, No IV (0 pts). Ambulatory Aid- Crutches/Cane/Walker (15 pts). Gait- Impaired (20 pts.). Mental Status- Oriented to own ability (0 pts). Total Fletcher Fall Scale indicates High Risk Score (45 or more points). Fall prevention measures have been instituted. Side Rails Up X 2 Placed Close to Nursing Station 1:1 Attendant Assigned Frequent Obs/Assessments Occuring As available patient and family educated on Fall Prevention Program and Strategies. Assessment: 13:00 General: Appears uncomfortable, Behavior is calm, cooperative. Pain: Complains of pain rb1 in left leg and left knee and left calf Pain currently is 10 out of 10 on a pain scale. Pain began 2-3 days ago. Aggravated by weight bearing. Neuro: Level of Consciousness is awake, alert, obeys commands, Oriented to person, place, time, situation. Cardiovascular: Capillary refill < 3 seconds. Respiratory: Airway is patent Respiratory effort is even, unlabored, Respiratory pattern is regular, symmetrical. GI: No signs and/or symptoms were reported involving the gastrointestinal system. : No signs and/or symptoms were reported regarding the genitourinary system. Derm: Skin is dry, Skin is normal, Skin temperature is warm. Musculoskeletal: Swelling present in left knee and left lower extremity. 13:31 Reassessment: US at the pt bedside. rb1 14:00 Reassessment: Patient appears in no apparent distress at this time. Patient and/or rb1 family updated on plan of care and expected duration. Pain level reassessed. Patient is alert, oriented x 3, equal unlabored respirations, skin warm/dry/pink. 14:06 Reassessment: Provider is at the pt bedside performing an aspiration on the left knee. rb1 15:00 Reassessment: Patient appears in no apparent distress at this time. Patient and/or rb1 family updated on plan of care and expected duration. Pain level reassessed. Patient is alert, oriented x 3, equal unlabored respirations, skin warm/dry/pink. 15:41 Reassessment: Patient appears in no apparent distress at this time. Assisted pt. to [facility] restroom via wheelchair. Vital Signs: 12:44 BP 159 / 86; Pulse 76; Resp 16; Temp 97.8; Pulse Ox 100% on R/A; Weight 72.57 kg; iw Height 5 ft. 5 in. (165.10 cm); Pain 9/10; 14:57 BP 171 / 99; Pulse 57; Resp 17; Pulse Ox 100% ; Pain 7/10; rb1 16:00 BP 171 / 87; Pulse 57; Resp 16; Pulse Ox 100% ; rb1 12:44 Body Mass Index 26.63 (72.57 kg, 165.10 cm) ED Course: 12:22 Patient arrived in ED. ag5 12:45 Triage completed. iw 12:45 Arm band placed on. iw 12:50 Terrell Snyder PA is PHCP. jr8 12:50 Yuan Hidalgo MD is Attending Physician. jr8 13:00 Patient has correct armband on for positive identification. Bed in low position. Call rb1 light in reach. Side rails up X 1. Pulse ox on. NIBP on. 13:24 Kassi Simon, RN is Primary Nurse. rb1 13:50 US Extremity Venous Unilateral Ltd In Process Unspecified. EDNY 13:51 Ultrasound completed. Patient tolerated well. Notified ED Physician mary grace. sg3 14:50 Wound culture swab sent to lab. rb1 16:07 No provider procedures requiring assistance completed. Patient did not have IV access rb1 during this emergency room visit. Administered Medications: 13:30 Drug: [place] 10 mg-325 mg 1 tabs Route: PO; rb1 14:05 Follow up: Response: No adverse reaction; Pain is decreased rb1 14:06 Drug: Lidocaine (1 %) 1 vials Volume: 20 ml; Route: Infiltration; rb1 15:57 Drug: Colcrys 1.2 mg Route: PO; rb1 16:02 Follow up: Response: Medication administered at discharge. rb1 Outcome: 15:36 Discharge ordered by . jr8 16:07 Discharged to home via wheelchair, with family. rb1 16:07 Condition: stable 16:07 Discharge instructions given to patient, Instructed on discharge instructions, follow up and referral plans. medication usage, Demonstrated understanding of instructions, follow-up care, medications, Prescriptions given X 2. 16:07 Patient left the ED. rb1 Signatures: Dispatcher [employer] Zeina Hector RN RN Terrell Snyder PA PA jr8 Kassi Simon RN RN rb1 Luh Alexandra sg3 Alysa Rahman ag5 Corrections: (The following items were deleted from the chart) 13:52 13:49 Ultrasound completed. Patient tolerated well. sg3 sg3
--- NOTE | 2020-05-09 15:37 | EDPHYS ---
Physician Documentation [facility] Name: Genevieve Pompa Age: 64 yrs Sex: Female : 1955 Arrival Date: 05/09/2020 Time: 12:22 Bed 19 Private MD: ED Physician Yuan Hidalgo HPI: 05/09 13:33 This 64 yrs old Black Female presents to ER via Wheelchair with complaints of Knee jr8 Pain, Leg Swelling. 13:33 The patient presents with decreased range of motion, pain, swelling, tenderness. The jr8 complaints affect the left calf and left knee. Context: The problem was sustained at home. Onset: The symptoms/episode began/occurred gradually, 2 week(s) ago, and became worse. Modifying factors: The symptoms are alleviated by nothing. the symptoms are aggravated by movement, weight bearing, bending knee. Associated signs and symptoms: The patient has no apparent associated signs or symptoms. Severity of symptoms: At their worst the symptoms were moderate, in the emergency department the symptoms are unchanged. The patient has experienced similar episodes in the past, a few times. The patient has not recently seen a physician. Patient stated that she suffers from Rheumatoid arthritis. Currently not on medication and not under care of PCP but has appointment to establish care soon. Stated that she started to have flare up in knee. Denies trauma. Stated that it is so swollen this time though that she is having severe pain in knee along with significant decrease in ROM. Stated that lower leg is now swelling as well which she normally does not have . Historical: - Allergies: 12:45 Codeine; iw - Home Meds: 12:45 None [Active]; iw - PMHx: 12:45 Hypertension; Arthritis; iw - PSHx: 12:45 None; iw - Immunization history:: Adult Immunizations up to date. - Social history:: Smoking status: Patient reports the use of cigarette tobacco products, denies chronic smoking, but will smoke occasionally. ROS: 13:33 Eyes: Negative for injury, pain, redness, and discharge, ENT: Negative for injury, jr8 pain, and discharge, Neck: Negative for injury, pain, and swelling, Cardiovascular: Negative for chest pain, palpitations, and edema, Respiratory: Negative for shortness of breath, cough, wheezing, and pleuritic chest pain, Abdomen/GI: Negative for abdominal pain, nausea, vomiting, diarrhea, and constipation, Back: Negative for injury and pain, Skin: Negative for injury, rash, and discoloration, Neuro: Negative for headache, weakness, numbness, tingling, and seizure. 13:33 MS/extremity: Positive for decreased range of motion, pain, swelling, tenderness, of the left knee and left calf. Exam: 13:33 Constitutional: This is a well developed, well nourished patient who is awake, alert, jr8 and in no acute distress. Cardiovascular: Regular rate and rhythm with a normal S1 and S2. No gallops, murmurs, or rubs. Normal PMI, no JVD. No pulse deficits. Respiratory: Lungs have equal breath sounds bilaterally, clear to auscultation and percussion. No rales, rhonchi or wheezes noted. No increased work of breathing, no retractions or nasal flaring. Skin: Warm, dry with normal turgor. Normal color with no rashes, no lesions, and no evidence of cellulitis. Neuro: Awake and alert, GCS 15, oriented to person, place, time, and situation. Cranial nerves II-XII grossly intact. Motor strength 5/5 in all extremities. Sensory grossly intact. Cerebellar exam normal. Normal gait. 13:33 Musculoskeletal/extremity: Extremities: grossly normal except: noted in the left leg: Patient has moderate effusion to left knee present. Tender to palpation. No erythema noted. Not warm to touch. Moderate decrease in ROM present secondary to both swelling and pain. Pitting edema also present to tibia region with circumferential difference noted from one calf to the other. Pulses 2+ DP and PT bilaterally. . Vital Signs: 12:44 BP 159 / 86; Pulse 76; Resp 16; Temp 97.8; Pulse Ox 100% on R/A; Weight 72.57 kg; iw Height 5 ft. 5 in. (165.10 cm); Pain 9/10; 14:57 BP 171 / 99; Pulse 57; Resp 17; Pulse Ox 100% ; Pain 7/10; rb1 16:00 BP 171 / 87; Pulse 57; Resp 16; Pulse Ox 100% ; rb1 12:44 Body Mass Index 26.63 (72.57 kg, 165.10 cm) iw MDM: 12:50 Patient medically screened. [facility] 15:35 Data reviewed: vital signs, nurses notes, lab test result(s), radiologic studies, jr8 ultrasound, and as a result, I will discharge patient. Data interpreted: Pulse oximetry: on room air is 100 %. Interpretation: normal. Counseling: I had a detailed discussion with the patient and/or guardian regarding: the historical points, exam findings, and any diagnostic results supporting the discharge/admit diagnosis, lab results, radiology results, the need for outpatient follow up, a family practitioner, a placement manager, to return to the emergency department if symptoms worsen or persist or if there are any questions or concerns that arise at home. Response to treatment: the patient's symptoms have markedly improved after treatment. 05/09 14:28 Order name: Fluid Cell Count,Body 8 05/09 14:28 Order name: Fluid Crystals; Complete Time: 15:26 8 05/09 13:16 Order name: US Extremity Venous Unilateral Ltd; Complete Time: 14:29 8 05/09 14:29 Order name: Body Fluid Culture 8 Administered Medications: 13:30 Drug: [place] 10 mg-325 mg 1 tabs Route: PO; rb1 14:05 Follow up: Response: No adverse reaction; Pain is decreased rb1 14:06 Drug: Lidocaine (1 %) 1 vials Volume: 20 ml; Route: Infiltration; rb1 15:57 Drug: Colcrys 1.2 mg Route: PO; rb1 16:02 Follow up: Response: Medication administered at discharge. rb1 Disposition: 16:56 Co-signature as Attending Physician, Yuan Hidalgo MD I agree with the assessment and darek plan of care. Disposition: 05/09/20 15:36 Discharged to Home. Impression: Gout due to renal impairment, left knee. - Condition is Stable. - Discharge Instructions: Gout, Knee Arthrocentesis, Low-Purine Diet. - Prescriptions for Medrol (Corey) 4 mg Oral Tablets, Dose Pack - take 1 tablet by ORAL route as directed - follow package instructions; 1 packet. Tramadol 50 mg Oral Tablet - take 1 tablet by ORAL route every 8 hours as needed; 12 tablet. - Medication Reconciliation Form, Thank You Letter, Antibiotic Education, Prescription Opioid Use form. - Follow up: Private Physician; When: 1 - 2 days; Reason: Recheck today's complaints, Continuance of care, Re-evaluation by your physician. - Problem is new. - Symptoms have improved. Signatures: Dispatcher [employer] EDMS Yuan Hidalgo MD MD cha Williams, Irene, RN RN Terrell Walter PA PA jr8 Kassi Simon, RN RN rb1 Corrections: (The following items were deleted from the chart) 16:07 15:36 05/09/2020 15:36 Discharged to Home. Impression: Gout due to renal impairment, rb1 left knee. Condition is Stable. Forms are Medication Reconciliation Form, Thank You Letter, Antibiotic Education, Prescription Opioid Use. Follow up: Private Physician; When: 1 - 2 days; Reason: Recheck today's complaints, Continuance of care, Re-evaluation by your physician. Problem is new. Symptoms have improved. jr8
[2020-05-09] MEDS ORDERED: COLCHICINE 0.6 MG TAB ONE (16:02)
[2020-05-09 16:08] LABS: Body Fluid WBC 52417 /mm^3
[2020-05-09 16:13] VITALS: TEMP 97.8; O2SAT 100
[2020-05-09 16:16] VITALS: BP 171/87
[2020-05-09 16:23] LABS: Body Fluid Source SYNOVIAL
[2020-05-09 16:24] LABS: Appearance TURBID (CLEAR); Color of fluid White (COLORLESS)
== END 2020-05-09 16:07 | disposition home or self-care (01) ==
LOC: ER 12:20
DX: M10.362 Gout due to renal impairment, left knee (principal); N28.9 Disorder of kidney and ureter, unspecified; I10 Essential (primary) hypertension; Z72.0 Tobacco use; Z88.5 Allergy status to narcotic agent
CPT/HCPCS: 36415; 87070; 89050; 89060; 93971; 99284

== ENCOUNTER 2020-07-16 09:41 | Emergency (ER) | payer SELFPAY ==
--- OUTSIDE RECORDS SUMMARY | 2020-07-16 10:01 | XMS REPORT | Clinical Summary ---
:1955 Author Organization [facility] Address [address] [place] [id number] Care Team Providers Name Role Phone Kacey [...] Not on file Results Not on fileafter 07/16/2019
--- NOTE | 2020-07-16 11:35 | ER ---
Nurse's Notes [facility] Name: Genevieve Pompa Age: 64 yrs Sex: Female : 1955 Arrival Date: 07/16/2020 Time: 09:42 Bed 7 Private MD: Diagnosis: Arthritis, unspecified;Pain in hand and fingers Presentation: 07/16 10:20 Chief complaint: Patient states: Right wrist pain for 3 days. Right hand swelling for 2 ll1 days. Donn wrapped loosened in triage. PMS intact. Coronavirus screen: Client denies travel out of the [place] in the last 14 days. At this time, the client does not indicate any symptoms associated with coronavirus-19. The client denies any previous COVID testing. Ebola Screen: Patient denies travel to an Ebola-affected area in the 21 days before illness onset. Initial Sepsis Screen: Does the patient meet any 2 criteria? No. Patient's initial sepsis screen is negative. Risk Assessment: Do you want to hurt yourself or someone else? Patient reports no desire to harm self or others. Onset of symptoms was July 13, 2020. 10:20 Method Of Arrival: Ambulatory ll1 10:20 Acuity: DA 4 ll1 11:30 Initial Sepsis Screen: Does the patient have a suspected source of infection? No. aa5 Patient's initial sepsis screen is negative. Historical: - Allergies: 10:19 Tylenol-Codeine #3; ll1 10:19 Codeine; ll1 - PMHx: 10:19 Arthritis; Hypertension; ll1 - PSHx: 10:19 None; ll1 - Immunization history:: Flu vaccine is up to date. - Social history:: Smoking status: Patient reports the use of cigarette tobacco products, cigars, Patient uses alcohol, only on a social basis. Patient/guardian denies using street drugs. Screenin:30 Abuse screen: Denies threats or abuse. Nutritional screening: No deficits noted. aa5 Tuberculosis screening: No symptoms or risk factors identified. Fall Risk None identified. Assessment: 11:30 General: Appears uncomfortable, Behavior is calm, cooperative. Pain: Complains of pain aa5 in right hand Pain currently is 9 out of 10 on a pain scale. Quality of pain is described as sharp, throbbing, Is continuous. Neuro: Level of Consciousness is awake, alert, obeys commands, Oriented to person, place, time, situation. Cardiovascular: Heart tones S1 S2 present Rhythm is regular. Respiratory: Airway is patent Respiratory effort is even, unlabored, Respiratory pattern is regular, symmetrical. GI: No signs and/or symptoms were reported involving the gastrointestinal system. : No signs and/or symptoms were reported regarding the genitourinary system. EENT: No signs and/or symptoms were reported regarding the EENT system. Derm: Skin is dry, Skin is normal, Skin temperature is warm. Musculoskeletal: Swelling present in right hand and right wrist. Vital Signs: 10:20 BP 136 / 89; Pulse 77; Resp 17; Temp 98.8; Pulse Ox 97% ; Weight 72.57 kg; Height 5 ft. ll1 5 in. (165.10 cm); Pain 9/10; 10:20 Body Mass Index 26.63 (72.57 kg, 165.10 cm) ll1 ED Course: 09:42 Patient arrived in ED. as 10:20 Arm band placed on. ll1 10:22 Triage completed. ll1 10:24 [facility]C [facility] snw 10:24 Yuan Hidalgo MD is Attending Physician. snw 11:10 Tana Gil, GUS is Primary Nurse. aa5 11:30 Patient has correct armband on for positive identification. Bed in low position. Call aa5 light in reach. Side rails up X 1. 12:15 No provider procedures requiring assistance completed. Patient did not have IV access aa5 during this emergency room visit. Administered Medications: 11:44 Drug: TORadol 60 mg Route: IM; Site: right gluteus; aa5 12:15 Follow up: Response: No adverse reaction aa5 11:44 Drug: predniSONE 40 mg Route: PO; aa5 12:15 Follow up: Response: No adverse reaction aa5 Outcome: 11:34 Discharge ordered by . snw 12:15 Discharged to home ambulatory. aa5 12:15 Condition: stable 12:15 Discharge instructions given to patient, Instructed on discharge instructions, follow up and referral plans. medication usage, Demonstrated understanding of instructions, follow-up care, medications, Prescriptions given X 4. 12:18 Patient left the ED. aa5 Signatures: Annetta Jang Shelly, FNP-C NETWORK CONTRACT MANAGER-Csnw Patt Thakur Audri RN RN aa5 Jessa Zarate RN RN ll1 Corrections: (The following items were deleted from the chart) 12:50 12:28 Patient left the ED. bd aa5
--- NOTE | 2020-07-16 11:35 | EDPHYS ---
Physician Documentation [facility] Name: Genevieve Pompa Age: 64 yrs Sex: Female : 1955 Arrival Date: 07/16/2020 Time: 09:42 Bed 7 Private MD: ED Physician Yuan Hidalgo HPI: 07/16 11:39 This 64 yrs old Black Female presents to ER via Ambulatory with complaints of Hand snw Swelling. 11:39 The patient or guardian reports decreased range of motion, swelling, tenderness. The snw complaints affect the right hand diffusely. Context: The problem was sustained at home, resulted from a chronic condition. Onset: The symptoms/episode began/occurred gradually, 3 day(s) ago, and became worse and became persistent. Associated signs and symptoms: Pertinent negatives: cyanosis distally, decreased sensation distally, fever. Severity of symptoms: At their worst the symptoms were moderate, severe. The patient has experienced similar episodes in the past. The patient has not recently seen a physician. Historical: - Allergies: 10:19 Tylenol-Codeine #3; ll1 10:19 Codeine; ll1 - PMHx: 10:19 Arthritis; Hypertension; ll1 - PSHx: 10:19 None; ll1 - Immunization history:: Flu vaccine is up to date. - Social history:: Smoking status: Patient reports the use of cigarette tobacco products, cigars, Patient uses alcohol, only on a social basis. Patient/guardian denies using street drugs. ROS: 11:39 Constitutional: Negative for fever, chills, and weight loss, Eyes: Negative for injury, snw pain, redness, and discharge, ENT: Negative for injury, pain, and discharge, Neck: Negative for injury, pain, and swelling, Cardiovascular: Negative for chest pain, palpitations, and edema, Respiratory: Negative for shortness of breath, cough, wheezing, and pleuritic chest pain, Abdomen/GI: Negative for abdominal pain, nausea, vomiting, diarrhea, and constipation, Back: Negative for injury and pain, : Negative for injury, bleeding, discharge, and swelling, Skin: Negative for injury, rash, and discoloration, Neuro: Negative for headache, weakness, numbness, tingling, and seizure, Psych: Negative for depression, anxiety, suicide ideation, homicidal ideation, and hallucinations. 11:39 MS/extremity: Positive for decreased range of motion, pain, swelling, of the right hand. Exam: 11:37 Constitutional: This is a well developed, well nourished patient who is awake, alert, snw and in no acute distress. Head/Face: Normocephalic, atraumatic. Eyes: Pupils equal round and reactive to light, extra-ocular motions intact. Lids and lashes normal. Conjunctiva and sclera are non-icteric and not injected. Cornea within normal limits. Periorbital areas with no swelling, redness, or edema. ENT: Nares patent. No nasal discharge, no septal abnormalities noted. Tiny blisters to nares. Oropharynx with no redness, swelling, or masses, exudates. Mucous membranes moist. Neck: Trachea midline, no thyromegaly or masses palpated, and no cervical lymphadenopathy. Supple, full range of motion without nuchal rigidity, or vertebral point tenderness. No Meningismus. Chest/axilla: Normal chest wall appearance and motion. Nontender with no deformity. No lesions are appreciated. Cardiovascular: Regular rate and rhythm with a normal S1 and S2. No gallops, murmurs, or rubs. Normal PMI, no JVD. No pulse deficits. Respiratory: Lungs have equal breath sounds bilaterally, clear to auscultation and percussion. No rales, rhonchi or wheezes noted. No increased work of breathing, no retractions or nasal flaring. Abdomen/GI: Soft, non-tender, with normal bowel sounds. No distension or tympany. No guarding or rebound. No evidence of tenderness throughout. Back: No spinal tenderness. No costovertebral tenderness. Full range of motion. Skin: Warm, dry with normal turgor. Normal color with no rashes, no lesions, and no evidence of cellulitis. Neuro: Awake and alert, GCS 15, oriented to person, place, time, and situation. Cranial nerves II-XII grossly intact. Motor strength 5/5 in all extremities. Sensory grossly intact. Cerebellar exam normal. Normal gait. 11:37 Musculoskeletal/extremity: Extremities: grossly normal except: noted in the right hand/wrist: decreased ROM, swelling, tenderness, ROM: limited active range of motion due to pain, limited passive range of motion due to pain, Circulation is intact in all extremities. Severe pain noted. Compartment Syndrome exam of affected extremity: is normal. Vital Signs: 10:20 BP 136 / 89; Pulse 77; Resp 17; Temp 98.8; Pulse Ox 97% ; Weight 72.57 kg; Height 5 ft. ll1 5 in. (165.10 cm); Pain 9/10; 10:20 Body Mass Index 26.63 (72.57 kg, 165.10 cm) ll1 MDM: 10:51 Patient medically screened. [facility] 11:38 Data reviewed: vital signs, nurses notes. Data interpreted: Pulse oximetry: on room air snw is 97 %. Counseling: I had a detailed discussion with the patient and/or guardian regarding: to return to the emergency department if symptoms worsen or persist or if there are any questions or concerns that arise at home. Response to treatment: the patient's symptoms have mildly improved after treatment. Special discussion: I have referred the patient to see his PCP for further evaluation of high blood pressure. Based on the history and exam findings, there is no indication for further emergent testing or inpatient evaluation. I discussed with the patient/guardian the need to see the primary care provider for further evaluation of the symptoms. I discussed with the patient/guardian the need to see the booking officer for further evaluation of the symptoms. Administered Medications: 11:44 Drug: TORadol 60 mg Route: IM; Site: right gluteus; aa5 12:15 Follow up: Response: No adverse reaction aa5 11:44 Drug: predniSONE 40 mg Route: PO; aa5 12:15 Follow up: Response: No adverse reaction aa5 Disposition: 15:24 Co-signature as Attending Physician, Yuan Hidalgo MD I agree with the assessment and [facility] plan of care. Disposition: 07/16/20 11:34 Discharged to Home. Impression: Arthritis, unspecified, Pain in hand and fingers. - Condition is Stable. - Discharge Instructions: Arthritis, MRSA Infection, Adult, Cryotherapy. - Prescriptions for Bactroban Nasal 2 % Nasal Ointment - apply 1 application by TOPICAL route every 12 hours for 5 days; 15 tube. Prednisone 20 mg Oral Tablet - take 2 tablet by ORAL route once daily for 5 days; 10 tablet. orphenadrine citrate 100 mg Oral Tablet Sustained Release - take 1 tablet by ORAL route 2 times per day As needed; 20 tablet. Cyclobenzaprine 10 mg Oral Tablet - take 1 tablet by ORAL route every 8 hours As needed; 30 tablet. - Medication Reconciliation Form, Thank You Letter, Antibiotic Education, Prescription Opioid Use form. - Follow up: Emergency Department; When: As needed; Reason: Worsening of condition. Follow up: Private Physician; When: 2 - 3 days; Reason: Recheck today's complaints, Continuance of care, Re-evaluation by your physician. - Notes: Please elevate hand as much as possible Signatures: Dispatcher [employer] [facility] Annetta Jang Corey, MD MD cha Waters, Shelly, UNLEAVENED DOUGH MIXER-C UNLEAVENED DOUGH MIXER-Csnw Tana Gil RN RN aa5 eJssa Zarate RN RN ll1 Corrections: (The following items were deleted from the chart) 11:42 11:26 Hand Right 3 View+RAD.RAD.BRZ ordered. [facility] 12:03 11:37 Constitutional: This is a well developed, well nourished patient who is awake, snw alert, and in no acute distress. Head/Face: Normocephalic, atraumatic. Eyes: Pupils equal round and reactive to light, extra-ocular motions intact. Lids and lashes normal. Conjunctiva and sclera are non-icteric and not injected. Cornea within normal limits. Periorbital areas with no swelling, redness, or edema. ENT: Nares patent. No nasal discharge, no septal abnormalities noted. Tympanic membranes are normal and external auditory canals are clear. Oropharynx with no redness, swelling, or masses, exudates, or evidence of obstruction, uvula midline. Mucous membranes moist. Neck: Trachea midline, no thyromegaly or masses palpated, and no cervical lymphadenopathy. Supple, full range of motion without nuchal rigidity, or vertebral point tenderness. No Meningismus. Chest/axilla: Normal chest wall appearance and motion. Nontender with no deformity. No lesions are appreciated. Cardiovascular: Regular rate and rhythm with a normal S1 and S2. No gallops, murmurs, or rubs. Normal PMI, no JVD. No pulse deficits. Respiratory: Lungs have equal breath sounds bilaterally, clear to auscultation and percussion. No rales, rhonchi or wheezes noted. No increased work of breathing, no retractions or nasal flaring. Abdomen/GI: Soft, non-tender, with normal bowel sounds. No distension or tympany. No guarding or rebound. No evidence of tenderness throughout. Back: No spinal tenderness. No costovertebral tenderness. Full range of motion. Skin: Warm, dry with normal turgor. Normal color with no rashes, no lesions, and no evidence of cellulitis. Neuro: Awake and alert, GCS 15, oriented to person, place, time, and situation. Cranial nerves II-XII grossly intact. Motor strength 5/5 in all extremities. Sensory grossly intact. Cerebellar exam normal. Normal gait. snw 12:28 11:34 07/16/2020 11:34 Discharged to Home. Impression: Arthritis, unspecified; Pain in bd hand and fingers. Condition is Stable. Forms are Medication Reconciliation Form, Thank You Letter, Antibiotic Education, Prescription Opioid Use. Follow up: Emergency Department; When: As needed; Reason: Worsening of condition. Follow up: Private Physician; When: 2 - 3 days; Reason: Recheck today's complaints, Continuance of care, Re-evaluation by your physician. snw
[2020-07-16] MEDS ORDERED: KETOROLAC 30 MG/ML INJ ONE (11:51)
[2020-07-16] MEDS ORDERED: predniSONE 20 MG TAB ONE (11:51)
[2020-07-16 12:34] VITALS: BP 136/89; TEMP 98.8; O2SAT 97
== END 2020-07-16 12:28 | disposition home or self-care (01) ==
LOC: ER 09:41
DX: M19.90 Unspecified osteoarthritis, unspecified site (principal); I10 Essential (primary) hypertension; F17.290 Nicotine dependence, other tobacco product, uncomplicated; Z88.5 Allergy status to narcotic agent
CPT/HCPCS: 96372; 99283; J7512

== ENCOUNTER 2020-10-25 11:33 | Emergency (ER) | payer SELFPAY ==
--- OUTSIDE RECORDS SUMMARY | 2020-10-25 11:35 | XMS REPORT | Clinical Summary ---
:1955 Author Organization [facility] Address [address] [place] [address] Care Team Providers Name Role Phone Kacey [...] Not on file Results Not on fileafter 10/25/2019
[2020-10-25 12:32] LABS: Absolute Lymphocytes (CBC) 1.6 K/uL (0.7-4.9); Hematocrit 30.1 % (36.0-45.0); Lymphocytes % 28.3 % (15.3-44.8); MPV 8.4 fL (7.6-11.3); RBC Red Blood Cell Count 3.31 M/uL (3.86-4.86)
[2020-10-25 13:18] LABS: Potassium 4.3 mmol/L (3.5-5.1)
--- NOTE | 2020-10-25 13:21 | RAD REPORT ---
EXAM DESCRIPTION: CT - Abdomen Pelvis W Contrast - 10/25/2020 1:02 pm CLINICAL HISTORY: Abdominal pain COMPARISON: none. TECHNIQUE: Computed axial tomography of the abdomen pelvis was obtained. 100 cc Isovue-300 was admin istered intravenously. Oral contrast was not requested which limits evaluation of bowel. All CT scans are performed using dose optimization technique as appropriate and may include automated exposure control or mA/KV adjustment according to patient size. FINDINGS: Fatty liver Small right kidney. Left kidney is enlarged perhaps compensatory hypertrophy. Mild renal cortical thi nning may indicate a prior inflammation. A small renal cysts. Spleen, pancreas, and adrenals appear Diverticula stem from the colon without evidence of diverticulitis. No ascites. 5 centimeter contusion within the left anterior subcutaneous fat of pelvis IMPRESSION: 5 centimeter contusion within the left anterior subcutaneous fat of pelvis
--- NOTE | 2020-10-25 13:24 | RAD REPORT ---
EXAM DESCRIPTION: CT - Head Brain Wo Cont - 10/25/2020 1:02 pm CLINICAL HISTORY: Headache COMPARISON: 2019 TECHNIQUE: Computed axial tomography of the head was obtained. IV contrast was not requested. All CT scans are performed using dose optimization technique as appropriate and may include automated exposure control or mA/KV adjustment according to patient size. FINDINGS: An intracranial bleed is not seen . The ventricles are normal in caliber. No extra-axial fluid collection is noted. Fluid within the sinuses/ mastoids is not seen. IMPRESSION: No acute intracranial abnormality is seen. If patient's symptoms persist MRI of the bra in would be recommended.
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
[2020-10-25 13:51] LABS: Blood Morphology Comment NOTED (NOT SEEN); Platelet Estimate ADEQ; White Blood Cell Scan OK (OK)
[2020-10-25 13:52] LABS: Macrocytosis 1+; Polychromasia 1+
[2020-10-25 14:44] VITALS: TEMP 97.4
[2020-10-25 14:46] VITALS: BP 146/89; O2SAT 98
== END 2020-10-25 13:44 | disposition home or self-care (01) ==
LOC: ER 11:33
DX: S30.1XXA Contusion of abdominal wall, initial encounter (principal); R51.9 Headache, unspecified; V49.40XA Driver injured in collision with unspecified motor vehicles in traffic accident, initial encounter; I10 Essential (primary) hypertension; F17.290 Nicotine dependence, other tobacco product, uncomplicated; Z88.5 Allergy status to narcotic agent
CPT/HCPCS: 36415; 70450; 74177; 80048; 82565; 85025; 99284; Q9967

== ENCOUNTER 2021-01-29 13:41 | Emergency (ER) | payer OTHER, SELFPAY ==
--- NOTE | 2021-01-29 14:16 | ER ---
Nurse's Notes [facility] Name: Genevieve Pompa Age: 65 yrs Sex: Female : 1955 Arrival Date: 01/29/2021 Time: 13:42 Bed 23 Private MD: Diagnosis: Arthritis unspecified right hand;Arthritis unspecified left hand;Arthritis unspecified right ankle;ARthritis unspecified left ankle Presentation: 01/29 13:58 Chief complaint: Patient states: has had swelling in her hands and ankles and elbows X iw 2 weeks, is usually intermittent, this episode has lasted linger than usual. Coronavirus screen: At this time, the client does not indicate any symptoms associated with coronavirus-19. Ebola Screen: Patient negative for fever greater than or equal to 101.5 degrees Fahrenheit, and additional compatible Ebola Virus Disease symptoms Patient denies exposure to infectious person. Patient denies travel to an Ebola-affected area in the 21 days before illness onset. No symptoms or risks identified at this time. Initial Sepsis Screen: Does the patient meet any 2 criteria? No. Patient's initial sepsis screen is negative. Does the patient have a suspected source of infection? No. Patient's initial sepsis screen is negative. Risk Assessment: Do you want to hurt yourself or someone else? Patient reports no desire to harm self or others. Onset of symptoms was January 20, 2021. 13:58 Method Of Arrival: Ambulatory 13:58 Acuity: DA 3 iw Historical: - Allergies: 14:01 Codeine; iw 14:01 Tylenol-Codeine #3; iw - Home Meds: 14:01 None [Active]; iw - PMHx: 14:01 Arthritis; Hypertension; iw - PSHx: 14:01 None; iw - Immunization history:: Flu vaccine is not up to date. - Social history:: Smoking status: Patient reports the use of cigarette tobacco products, cigars. Screenin:05 Abuse screen: Denies threats or abuse. Denies injuries from another. Nutritional ca1 screening: No deficits noted. Tuberculosis screening: No symptoms or risk factors identified. Fall Risk None identified. Assessment: 14:05 General: Appears in no apparent distress. comfortable, Behavior is calm, cooperative, ca1 appropriate for age. Pain: Complains of pain in right hand, left hand, right foot, left foot, right leg and left leg Pain currently is 9 out of 10 on a pain scale. Pain began 2 weeks. PT reports she has arthritis and this is a flare up and she ran out of pain meds. Neuro: Level of Consciousness is awake, alert, obeys commands, Oriented to person, place, time, situation. Derm: Skin is intact, is healthy with good turgor, Skin is pink, warm \T\ dry. Musculoskeletal: Circulation, motion, and sensation intact. Capillary refill < 3 seconds, Swelling present in right hand, left hand, right foot and left foot. Vital Signs: 13:58 BP 157 / 97; Pulse 83; Resp 16; Temp 99.0; Pulse Ox 100% ; Weight 71.67 kg; Height 5 iw ft. 5 in. (165.10 cm); Pain 9/10; 13:58 Body Mass Index 26.29 (71.67 kg, 165.10 cm) iw ED Course: 13:42 Patient arrived in ED. am2 14:00 Triage completed. iw 14:01 Arm band placed on. iw 14:04 Willie Bagley NP is PHCP. pm1 14:04 Yuan Hidalgo MD is Attending Physician. pm1 14:05 Patient has correct armband on for positive identification. Bed in low position. Call ca1 light in reach. Side rails up X 1. Pulse ox on. NIBP on. Warm blanket given. 14:11 Disha Spencer, RN is Primary Nurse. ca1 14:34 No provider procedures requiring assistance completed. Patient did not have IV access ca1 during this emergency room visit. Administered Medications: 14:18 Drug: traMADol 50 mg {Note: rass 0.} Route: PO; ca1 14:34 Follow up: Response: No adverse reaction; Pain is decreased; RASS: Alert and Calm (0) ca1 14:20 Drug: Decadron 10 mg Route: IM; Site: right gluteus; ca1 14:34 Follow up: Response: No adverse reaction; Marked relief of symptoms ca1 Outcome: 14:15 Discharge ordered by . pm1 14:34 Discharged to home ambulatory. ca1 14:34 Condition: stable 14:34 Discharge instructions given to patient, Instructed on discharge instructions, follow up and referral plans. no drinking with medication, no driving heavy equipment, medication usage, Demonstrated understanding of instructions, follow-up care, medications, Prescriptions given X 2. 14:34 Patient left the ED. ca1 Signatures: Zeina Calixto RN RN iw Willie Bagley, EFREN TALENT ACQUISITION SPECIALIST pm1 Vviian Benson am2 Disha pSencer RN RN ca1
--- NOTE | 2021-01-29 14:16 | EDPHYS ---
Physician Documentation [facility] Name: Genevieve Pompa Age: 65 yrs Sex: Female : 1955 Arrival Date: 01/29/2021 Time: 13:42 Bed 23 Private MD: ED Physician Yuan Hidalgo HPI: 01/29 14:09 This 65 yrs old Black Female presents to ER via Ambulatory with complaints of Hand pm1 Swelling, Ankle Swelling. 14:09 The patient or guardian reports joint swelling and pain to bilateral hands and ankles. pm1 Context: resulted from history of arthritis. Onset: The symptoms/episode began/occurred many years and worse today. patient currently not taking any medications for her rheumatoid arthritis. Modifying factors: The symptoms are alleviated by nothing, the symptoms are aggravated by movement. Associated signs and symptoms: The patient has no apparent associated signs or symptoms, Pertinent negatives: fever, numbness distally, tingling distally. Severity of symptoms: in the emergency department the symptoms are actually worse. The patient has experienced similar episodes in the past, chronically. The patient has not recently seen a physician. Historical: - Allergies: 14:01 Codeine; iw 14:01 Tylenol-Codeine #3; iw - Home Meds: 14: None [Active]; iw - PMHx: 14: Arthritis; Hypertension; iw - PSHx: 14:01 None; iw - Immunization history:: Flu vaccine is not up to date. - Social history:: Smoking status: Patient reports the use of cigarette tobacco products, cigars. ROS: 14:09 Constitutional: Negative for fever, chills, and weight loss, Cardiovascular: Negative pm1 for chest pain, palpitations, and edema, Respiratory: Negative for shortness of breath, cough, wheezing, and pleuritic chest pain. 14:09 Skin: Negative for injury, rash, and discoloration, Neuro: Negative for headache, weakness, numbness, tingling, and seizure. 14:09 MS/extremity: Positive for pain, swelling, of the left hand and right hand and left ankle and right ankle, Negative for decreased range of motion. Exam: 14:09 Constitutional: This is a well developed, well nourished patient who is awake, alert, pm1 and in no acute distress. Head/Face: Normocephalic, atraumatic. 14:09 Skin: Warm, dry with normal turgor. Normal color with no rashes, no lesions, and no evidence of cellulitis. 14:09 Cardiovascular: Exam negative for acute changes, Rate: normal, Rhythm: regular, Pulses: no pulse deficits are appreciated. 14:09 Respiratory: Exam negative for acute changes, respiratory distress, shortness of breath. 14:09 Musculoskeletal/extremity: Extremities: grossly normal except: noted in the left index finger and right index finger and left ankle: swelling, tenderness, There is no evidence of decreased ROM. Vital Signs: 13:58 BP 157 / 97; Pulse 83; Resp 16; Temp 99.0; Pulse Ox 100% ; Weight 71.67 kg; Height 5 iw ft. 5 in. (165.10 cm); Pain 9/10; 13:58 Body Mass Index 26.29 (71.67 kg, 165.10 cm) iw MDM: 14:04 Patient medically screened. pm1 14:09 Data reviewed: vital signs. Data interpreted: Pulse oximetry: on room air is 100 %. pm1 Interpretation: normal. 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 Administered Medications: 14:18 Drug: traMADol 50 mg {Note: rass 0.} Route: PO; ca1 14:34 Follow up: Response: No adverse reaction; Pain is decreased; RASS: Alert and Calm (0) ca1 14:20 Drug: Decadron 10 mg Route: IM; Site: right gluteus; ca1 14:34 Follow up: Response: No adverse reaction; Marked relief of symptoms ca1 Disposition: 01/30 09:10 Co-signature as Attending Physician, Yuan Hidalgo MD I agree with the assessment and darek plan of care. Disposition: 01/29/21 14:15 Discharged to Home. Impression: Arthritis unspecified right hand, Arthritis unspecified left hand, Arthritis unspecified right ankle, ARthritis unspecified left ankle. - Condition is Stable. - Discharge Instructions: Arthritis. - Prescriptions for Tramadol 50 mg Oral Tablet - take 1 tablet by ORAL route every 8 hours as needed; 12 tablet. Medrol (Corey) 4 mg Oral Tablets, Dose Pack - take 1 tablet by ORAL route as directed - follow package instructions; 1 packet. - Medication Reconciliation Form, Thank You Letter, Antibiotic Education, Prescription Opioid Use form. - Follow up: Emergency Department; When: As needed; Reason: Worsening of condition. Follow up: Private Physician; When: 2 - 3 days; Reason: Recheck today's complaints, Continuance of care, Re-evaluation by your physician. - Problem is new. - Symptoms have improved. Signatures: Yuan Hidalgo MD MD cha Williams, Irene, RN RN iw Willie Bagley NP DIVISION CHIEF pm1 Acob, GUS Gauthier RN ca1 Corrections: (The following items were deleted from the chart) 03 14:16 14:15 01/29/2021 14:15 Discharged to Home. Impression: Arthritis unspecified right pm1 hand; Arthritis unspecified left hand. Condition is Stable. Forms are Medication Reconciliation Form, Thank You Letter, Antibiotic Education, Prescription Opioid Use. pm1 14:17 14:16 01/29/2021 14:15 Discharged to Home. Impression: Arthritis unspecified right pm1 hand; Arthritis unspecified left hand. Condition is Stable. Forms are Medication Reconciliation Form, Thank You Letter, Antibiotic Education, Prescription Opioid Use. Follow up: Emergency Department; When: As needed; Reason: Worsening of condition. Follow up: Private Physician; When: 2 - 3 days; Reason: Recheck today's complaints, Continuance of care, Re-evaluation by your physician. Problem is new. Symptoms have improved. pm1 14:34 14:17 01/29/2021 14:15 Discharged to Home. Impression: Arthritis unspecified right ca1 hand; Arthritis unspecified left hand; Arthritis unspecified right ankle; ARthritis unspecified left ankle. Condition is Stable. Forms are Medication Reconciliation Form, Thank You Letter, Antibiotic Education, Prescription Opioid Use. Follow up: Emergency Department; When: As needed; Reason: Worsening of condition. Follow up: Private Physician; When: 2 - 3 days; Reason: Recheck today's complaints, Continuance of care, Re-evaluation by your physician. Problem is new. Symptoms have improved. pm1
[2021-01-29] MEDS ORDERED: dexAMETHasone 10 MG/ML VIAL ONE (14:32)
[2021-01-29] MEDS ORDERED: TRAMADOL HCL 50 MG TAB ONE (14:34)
[2021-01-29 14:41] VITALS: BP 157/97; TEMP 99; O2SAT 100
== END 2021-01-29 14:34 | disposition home or self-care (01) ==
LOC: ER 13:41
DX: M19.042 Primary osteoarthritis, left hand (principal); M19.041 Primary osteoarthritis, right hand; M19.072 Primary osteoarthritis, left ankle and foot; M19.071 Primary osteoarthritis, right ankle and foot; I10 Essential (primary) hypertension; F17.290 Nicotine dependence, other tobacco product, uncomplicated; Z88.5 Allergy status to narcotic agent; Z88.6 Allergy status to analgesic agent
CPT/HCPCS: 96372; 99283; J1100

== ENCOUNTER 2021-08-25 17:28 | Emergency (ER) | payer OTHER ==
[2021-08-25] MEDS ORDERED: HYDROCODONE/APAP 7.5/325 MG TAB ONE (19:04)
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
--- NOTE | 2021-08-25 19:13 | RAD REPORT ---
EXAM DESCRIPTION: RAD - Hip Right 2 View - 08/25/2021 6:44 pm CLINICAL HISTORY: Right hip pain FINDINGS: No fracture or dislocation is seen. Osteoporosis If the patient continues to have symptoms to suggest an occult fracture then MRI would be recommended
--- NOTE | 2021-08-25 19:14 | RAD REPORT ---
EXAM DESCRIPTION: RAD - Humerus Right - 08/25/2021 6:44 pm CLINICAL HISTORY: Right arm pain status post fall FINDINGS: A mildly displaced comminuted fracture right humeral neck which extends inferiorly.
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
--- NOTE | 2021-08-25 19:54 | EDPHYS ---
Physician Documentation [facility] Name: Genevieve Pompa Age: 65 yrs Sex: Female : 1955 Arrival Date: 08/25/2021 Time: 17:38 Bed 15 Private MD: ED Physician Dasia Meyer HPI: 08/25 18:20 This 65 yrs old Black Female presents to ER via Ambulatory with complaints of Fall cp Injury. 18:20 Details of fall: The patient fell from an upright position, while walking, and struck cp wood luzma. Onset: The symptoms/episode began/occurred just prior to arrival. Associated injuries: The patient sustained right upper arm, right hip. Patient denies striking head and denies LOC. Patient slip and fall after stepping on water bottle. Historical: - Allergies: 17:44 Codeine; vg1 17:44 Tylenol-Codeine #3; vg1 - Home Meds: 17:44 None [Active]; vg1 - PMHx: 17:44 Arthritis; Hypertension; vg1 - Immunization history:: Adult Immunizations up to date, Client reports receiving the 2nd dose of the Covid vaccine. - Social history:: Smoking status: Patient reports the use of cigarette tobacco products, cigars. - Immunization history: Last tetanus immunization: < 5 years ago. ROS: 18:25 Cardiovascular: Negative for chest pain, palpitations. cp 18:25 Constitutional: Negative for body aches, chills, fever, poor PO intake. cp 18:25 MS/extremity: Positive for injury or acute deformity, decreased range of motion, pain, tenderness, of the right upper arm and right hip. 18:25 Neuro: Negative for altered mental status, dizziness, headache, loss of consciousness, syncope, weakness. 18:25 All other systems are negative. Exam: 18:30 Constitutional: The patient appears in no acute distress, alert, awake, cp non-diaphoretic, non-toxic, well developed, well nourished, uncomfortable. 18:30 Head/Face: Normocephalic, atraumatic. cp 18:30 Eyes: Periorbital structures: appear normal, Pupils: equal, round, and reactive to light and accomodation, Extraocular movements: intact throughout, Conjunctiva: normal, no exudate, no injection, Sclera: no appreciated abnormality, Lids and lashes: appear normal, bilaterally. 18:30 ENT: External ear(s): are unremarkable, Nose: is normal, Mouth: Lips: moist, Oral mucosa: moist, Posterior pharynx: Airway: no evidence of obstruction, patent. 18:30 Neck: C-spine: vertebral tenderness, is not appreciated, crepitus, is not appreciated, ROM/movement: is normal, is supple, without pain, no range of motions limitations. 18:30 Chest/axilla: Inspection: normal, Palpation: is normal, no crepitus, no tenderness. 18:30 Cardiovascular: Rate: normal, Rhythm: regular, Pulses: Pulses are 2+ in right radial artery, right dorsalis pedis artery, left radial artery and left dorsalis pedis artery. 18:30 Respiratory: the patient does not display signs of respiratory distress, Respirations: normal, no use of accessory muscles, no retractions, labored breathing, is not present, Breath sounds: are clear throughout, no decreased breath sounds, no stridor, no wheezing. 18:30 Abdomen/GI: Inspection: abdomen appears normal, Palpation: abdomen is soft and non-tender, in all quadrants. 18:30 Back: vertebral tenderness, is not appreciated. 18:30 Musculoskeletal/extremity: Extremities: grossly normal except: noted in the right upper arm: decreased ROM, pain, tenderness, noted in the right hip: pain, no evidence of decreased ROM, deformity. 18:30 Neuro: Orientation: to person, place \T\ time. Mentation: is normal, Sensation: no obvious gross deficits. Vital Signs: 17:40 BP 143 / 95; Pulse 82; Resp 18; Temp 97.5; Pulse Ox 100% ; Weight 65.77 kg; Height 5 vg1 ft. 5 in. (165.10 cm); Pain 9/10; 17:56 BP 143 / 95; Pulse 82; Resp 18; Temp 97.5; Pulse Ox 100% ; aj2 19:42 BP 150 / 80; Pulse 80; Resp 18; Temp 98.0(O); Pulse Ox 100% on R/A; Pain 3/10; kc4 17:40 Body Mass Index 24.13 (65.77 kg, 165.10 cm) vg1 Crandall Coma Score: 19:42 Eye Response: spontaneous(4). Verbal Response: oriented(5). Motor Response: obeys kc4 commands(6). Total: 15. Trauma Score (Adult): 19:42 Eye Response: spontaneous(1); Verbal Response: oriented(1); Motor Response: obeys kc4 commands(2); Systolic BP: > 89 mm Hg(4); Respiratory Rate: 10 to 29 per min(4); Crandall Score: 15; Trauma Score: 12 Procedures: 20:00 Splinting: Splint applied to right shoulder using sling, applied by nurse. Examined by cp me, post splint application: neurovascular intact, Patient tolerated well. MDM: 18:02 Patient medically screened. cp 19:53 Data reviewed: vital signs, nurses notes, radiologic studies, plain films. cp 19:53 Counseling: I had a detailed discussion with the patient and/or guardian regarding: the cp historical points, exam findings, and any diagnostic results supporting the discharge/admit diagnosis, radiology results, the need for outpatient follow up, for definitive care, a orthopedic surgeon, to return to the emergency department if symptoms worsen or persist or if there are any questions or concerns that arise at home. Response to treatment: the patient's symptoms have markedly improved after treatment. ED course: VSS. Pain improved with meds. Xrays reviewed and hip xrays negative for fracture. Patient observed able to bear weight on right hip. Will discharge to home for continued monitoring. 08/25 18:15 Order name: XRAY Pelvis; Complete Time: 19:50 cp 08/25 18:15 Order name: XRAY Hip RIGHT 2 view; Complete Time: 19:50 cp 08/25 18:15 Order name: XRAY Humerus RIGHT; Complete Time: 19:50 cp 08/25 19:27 Order name: Sling: right arm; Complete Time: 20:09 cp Administered Medications: 18:39 Drug: Hydrocodone-Acetaminophen (7.5 mg-325 mg) 1 tabs Route: PO; aj2 19:37 Follow up: Response: No adverse reaction kc4 20:09 Follow up: Response: No adverse reaction kc4 Disposition: 20:00 Chart complete. cp Disposition Summary: 08/25/21 19:53 Discharge Ordered Location: Home cp Problem: new cp Symptoms: have improved cp Condition: Stable cp Diagnosis - Fall on same level, unspecified cp - Fracture of upper end of humerus - Right Humeral Neck Fracture cp - Pain in right hip - from fall cp Followup: cp - With: Basil Horton MD - When: 2 - 3 days - Reason: Recheck today's complaints Discharge Instructions: - Discharge Summary Sheet cp - Humerus Fracture Treated With Immobilization cp - Hip Pain cp Forms: - Medication Reconciliation Form cp - Thank You Letter cp - Antibiotic Education cp - Prescription Opioid Use cp Prescriptions: - Ibuprofen 800 mg Oral Tablet - take 1 tablet by ORAL route every 8 hours As needed take with food; 30 tablet; cp Refills: 0, Product Selection Permitted - Ultracet 37.5-325 mg Oral Tablet - take 1 tablet by ORAL route every 6 hours - for up to 5 days; do not exceed 8 cp tablets per day.; 30 tablet; Refills: 0, Product Selection Permitted Signatures: Dispatcher [employer] EDYuan Schwarz PA PA cp Garcia, Victoria, RN RN vg1 Franco Daugherty aj2 Shannan Cavazos kc4
[2021-08-25 20:22] VITALS: O2SAT 100
[2021-08-25 20:24] VITALS: BP 150/80; TEMP 98
== END 2021-08-25 20:17 | disposition home or self-care (01) ==
LOC: ER 17:28
DX: S42.211A Unspecified displaced fracture of surgical neck of right humerus, initial encounter for closed fracture (principal); M25.551 Pain in right hip; W01.0XXA Fall on same level from slipping, tripping and stumbling without subsequent striking against object, initial encounter; Y93.01 Activity, walking, marching and hiking; I10 Essential (primary) hypertension; F17.210 Nicotine dependence, cigarettes, uncomplicated; Z88.5 Allergy status to narcotic agent; Z88.6 Allergy status to analgesic agent
CPT/HCPCS: 72170; 99284